=== PATIENT | female | born 1935 | race Caucasian/White ===

== ENCOUNTER 2019-08-20 08:36 | Inpatient (IN) ==
[2019-08-20] MEDS ORDERED: 0.9 % Sodium Chloride 500 ML IV ONE (08:53)
[2019-08-20] MEDS ORDERED: Pantoprazole 40 MG VIAL IVP ONE (09:00)
[2019-08-20] MEDS ORDERED: Ondansetron 4 MG/2 ML VIAL IVP ONE (09:01)
[2019-08-20 09:19] LABS: Basophils % 0.5 %; Eosinophils # 0.1 K/mcL (0.0-0.6); Hematocrit 23.2 % (35.3-44.9); Hemoglobin 7.4 g/dL (11.5-15.4); Immature Granulocytes % 0.5 % (0-4); Lymphocytes # 1.1 K/mcL (0.6-4.6); Lymphocytes % 13.8 %; Mean Corpuscular HGB Conc 31.9 g/dL (31.6-35.5); Mean Corpuscular Hemoglobin 28.2 pg (28.0-33.3); Mean Corpuscular Volume 88.5 fL (83.0-100.0); Mean Platelet Volume 9.9 fL (9.4-12.4); Monocytes # 0.8 K/mcL (0.0-1.3); Monocytes % 10.3 %; Platelet Count 270 K/mcL (140-400); Red Blood Count 2.62 M/mcL (3.82-4.97); Red Cell Distribution Width 16.3 % (11.5-14.5); Segmented Neutrophils % 73.9 %; White Blood Count 8.2 K/mcL (4.3-11.1)
[2019-08-20 09:20] LABS: INR 1.6; Prothrombin Time 17.7 Seconds (9.4-12.1)
[2019-08-20 09:22] LABS: Activated Partial Thrombo Time 34.3 Seconds (26.0-36.0)
[2019-08-20 09:35] LABS: Alanine Aminotransferase 8 Units/L (7-52); Albumin 3.6 g/dL (3.5-5.7); Albumin/Globulin Ratio 1.2 (1.1-2.2); Alkaline Phosphatase 83 Units/L (34-104); Aspartate Amino Transferase 10 Units/L (13-39); BUN/Creatinine Ratio 21 (6-26); Bilirubin,Total 0.5 mg/dL (0.3-1.0); Blood Urea Nitrogen 45 mg/dL (8-23); Calcium 8.8 mg/dL (8.6-10.3); Carbon Dioxide 27 mEq/L (23-29); Chloride 100 mEq/L (98-107); Glucose 145 mg/dL (70-105); Lipase 25 Units/L (11-82); Osmolality,Calculated 296 (280-300); Potassium 4.3 mEq/L (3.5-5.1); Sodium 136 mEq/L (136-145); Total Protein 6.6 g/dL (6.4-8.9); Troponin I < 0.03 ng/mL (< 0.04); eGFR For African Americans 27 (> 60); eGFR For Non-African Americans 22 (> 60)
[2019-08-20 10:57] LABS: Bilirubin,Urine Negative (Negative); Blood,Urine Large (Negative); Clarity,Urine Cloudy (Clear); Color,Urine Yellow (Yellow); Glucose,Urine (UA) Normal (Normal); Ketones,Urine Negative (Negative); Leukocyte Esterase,Urine Large (Negative); Nitrite,Urine Positive (Negative); PH,Urine 6.5 pH Units (5.0-8.0); Protein,Urine Negative (Neg-Trace); Specific Gravity,Urine 1.011 (1.010-1.025); Urobilinogen,Urine Normal (Normal)
[2019-08-20 10:59] LABS: Bacteria,Urine Many per hpf (None-Few); Hyaline Casts,Urine None Seen per lpf (None-Few); Squamous Epithelial Cell,Urine Few per lpf (None-Few); WBC,Urine TNTC per hpf (0-3)
[2019-08-20] MEDS ORDERED: 0.9 % Sodium Chloride 250 ML ONE (11:06)
[2019-08-20] MEDS ORDERED: Naloxone 0.4 MG/ML INJ IVP PRN (13:59)
[2019-08-20] MEDS ORDERED: *HR* Dextrose 50 % in Water (Syg) 50 ML SYRINGE IVP PRN (14:13)
[2019-08-20] MEDS ORDERED: Dextrose Gel 15 GM/37.5 ML TUBE PO PRN ×2 (14:13)
[2019-08-20] MEDS ORDERED: D5% in Water 1,000 ML IVC PRN (14:13)
[2019-08-20 15:24] LABS: Estimated Average Glucose 235 mg/dl
[2019-08-20] MEDS: 0.9 % Sodium Chloride 1,000 ML IVC SCH (15:46)
[2019-08-20] MEDS: Insulin LISPRO 300 UNITS/3 ML VIAL SQ SCH ×2 (16:15→21:50)
[2019-08-20] MEDS: Pantoprazole 40 MG VIAL IVP SCH (18:28)
[2019-08-20 18:51] LABS: Hematocrit 23.4 % (35.3-44.9); Hemoglobin 7.3 g/dL (11.5-15.4)
[2019-08-20 22:12] LABS: Hematocrit 20.1 % (35.3-44.9); Hemoglobin 6.5 g/dL (11.5-15.4)
[2019-08-21 00:21] LABS: Basophils # 0.1 K/mcL (0.0-0.2); Basophils % 0.6 %; Eosinophils # 0.1 K/mcL (0.0-0.6); Eosinophils % 1.3 %; Hematocrit 20.6 % (35.3-44.9); Hemoglobin 6.6 g/dL (11.5-15.4); Immature Granulocytes % 0.6 % (0-4); Lymphocytes # 1.7 K/mcL (0.6-4.6); Lymphocytes % 18.4 %; Mean Corpuscular Hemoglobin 28.4 pg (28.0-33.3); Mean Corpuscular Volume 88.8 fL (83.0-100.0); Mean Platelet Volume 9.4 fL (9.4-12.4); Monocytes # 1.1 K/mcL (0.0-1.3); Monocytes % 11.7 %; Platelet Count 234 K/mcL (140-400); Red Blood Count 2.32 M/mcL (3.82-4.97); Red Cell Distribution Width 16.3 % (11.5-14.5); Segmented Neutrophils % 67.4 %
[2019-08-21] MEDS ORDERED: 0.9 % Sodium Chloride 250 ML ONE (00:29)
[2019-08-21 00:40] LABS: Calcium 8.2 mg/dL (8.6-10.3); Potassium 4.3 mEq/L (3.5-5.1)
[2019-08-21] MEDS: 0.9 % Sodium Chloride 1,000 ML IVC SCH (05:12)
[2019-08-21] MEDS: Pantoprazole 40 MG VIAL IVP SCH ×2 (05:13→17:23)
[2019-08-21 05:33] LABS: Hematocrit 21.8 % (35.3-44.9)
[2019-08-21] MEDS: Insulin LISPRO 300 UNITS/3 ML VIAL SQ SCH ×3 (07:49→16:43)
[2019-08-21] MEDS ORDERED: Ringers Solution, Lactated 1,000 ML IVC SCH (08:15)
[2019-08-21] MEDS ORDERED: Lidocaine -MPF 2% 2 ML VIAL ONE (08:28)
[2019-08-21] MEDS ORDERED: *HR* PHENYLEPHRINE 1,000 MCG/10 ML SYRINGE IVP ONE (08:28)
[2019-08-21] MEDS: cefTRIAXone 1,000 MG in Water for inj. (sterile) 10 ML IVP SCH (10:36)
[2019-08-21] MEDS ORDERED: 0.9 % Sodium Chloride 250 ML IVC SCH (18:30)
[2019-08-21 20:12] LABS: Hematocrit 18.9 % (35.3-44.9)
[2019-08-22 02:59] LABS: Basophils % 0.4 %; Eosinophils # 0.1 K/mcL (0.0-0.6); Eosinophils % 1.1 %; Hematocrit 19.5 % (35.3-44.9); Hemoglobin 6.2 g/dL (11.5-15.4); Immature Granulocytes % 0.8 % (0-4); Lymphocytes # 0.7 K/mcL (0.6-4.6); Lymphocytes % 6.8 %; Mean Corpuscular HGB Conc 31.8 g/dL (31.6-35.5); Mean Corpuscular Hemoglobin 28.3 pg (28.0-33.3); Mean Platelet Volume 10.1 fL (9.4-12.4); Monocytes # 1.2 K/mcL (0.0-1.3); Monocytes % 12.2 %; Neutrophils # 7.7 K/mcL (1.6-8.9); Platelet Count 186 K/mcL (140-400); Red Blood Count 2.19 M/mcL (3.82-4.97); Red Cell Distribution Width 16.7 % (11.5-14.5); Segmented Neutrophils % 78.7 %; White Blood Count 9.8 K/mcL (4.3-11.1)
[2019-08-22 03:20] LABS: Calcium 7.9 mg/dL (8.6-10.3); Potassium 4.2 mEq/L (3.5-5.1)
[2019-08-22] MEDS: Insulin LISPRO 300 UNITS/3 ML VIAL SQ SCH ×5 (04:58→22:26)
[2019-08-22] MEDS: Pantoprazole 40 MG VIAL IVP SCH ×2 (05:54→18:45)
[2019-08-22] MEDS: cefTRIAXone 1,000 MG in Water for inj. (sterile) 10 ML IVP SCH (08:51)
[2019-08-22] MEDS ORDERED: Isovue-370 500 ML BOTTLE IVP ONE (10:18)
[2019-08-22] MEDS ORDERED: 0.9 % Sodium Chloride 250 ML ONE (13:33)
[2019-08-22] MEDS ORDERED: *HR* Metoprolol 5 MG/5 ML VIAL IVP PRN (14:30)
[2019-08-22 18:27] LABS: Hematocrit 23.3 % (35.3-44.9); Hemoglobin 7.6 g/dL (11.5-15.4)
[2019-08-22] MEDS: 0.9 % Sodium Chloride 1,000 ML IVC SCH (18:45)
[2019-08-22] MEDS: Budesonide/Formoterol 80/4.5 1 PUFF INH IH SCH (19:50)
[2019-08-23 03:46] LABS: Basophils % 0.4 %; Eosinophils # 0.1 K/mcL (0.0-0.6); Eosinophils % 1.6 %; Hematocrit 24.1 % (35.3-44.9); Hemoglobin 7.9 g/dL (11.5-15.4); Immature Granulocytes % 0.9 % (0-4); Lymphocytes # 0.5 K/mcL (0.6-4.6); Lymphocytes % 7.6 %; Mean Corpuscular HGB Conc 32.8 g/dL (31.6-35.5); Mean Corpuscular Hemoglobin 29.2 pg (28.0-33.3); Mean Corpuscular Volume 88.9 fL (83.0-100.0); Mean Platelet Volume 9.5 fL (9.4-12.4); Monocytes # 0.7 K/mcL (0.0-1.3); Monocytes % 10.1 %; Neutrophils # 5.4 K/mcL (1.6-8.9); Platelet Count 159 K/mcL (140-400); Red Blood Count 2.71 M/mcL (3.82-4.97); Red Cell Distribution Width 16.8 % (11.5-14.5); Segmented Neutrophils % 79.4 %; White Blood Count 6.8 K/mcL (4.3-11.1)
[2019-08-23 04:04] LABS: Calcium 8.4 mg/dL (8.6-10.3); Potassium 3.6 mEq/L (3.5-5.1)
[2019-08-23 04:05] LABS: Uric Acid 10.4 mg/dL (2.3-7.6)
[2019-08-23 04:06] LABS: Complement C3 74 mg/dL (87-200)
[2019-08-23] MEDS: Pantoprazole 40 MG VIAL IVP SCH ×2 (06:39→18:08)
[2019-08-23] MEDS: Budesonide/Formoterol 80/4.5 1 PUFF INH IH SCH ×2 (07:39→21:46)
[2019-08-23] MEDS ORDERED: 0.9 % Sodium Chloride 250 ML IVC SCH (09:15)
[2019-08-23] MEDS: 0.9 % Sodium Chloride 1,000 ML IVC SCH (09:34)
[2019-08-23] MEDS: cefTRIAXone 1,000 MG in Water for inj. (sterile) 10 ML IVP SCH (09:35)
[2019-08-23] MEDS: Insulin LISPRO 300 UNITS/3 ML VIAL SQ SCH ×3 (09:35→18:06)
[2019-08-23] MEDS: Ondansetron 4 MG/2 ML VIAL IVP PRN (09:59)
[2019-08-23] MEDS ORDERED: 0.9 % Sodium Chloride 1,000 ML IVC SCH (11:05)
[2019-08-23] MEDS ORDERED: Ondansetron 4 MG/2 ML VIAL IVP ONE (18:01)
[2019-08-23] MEDS ORDERED: *HR* FentaNYL (PF) 100 MCG/2 ML VIAL IVP PRN (18:01)
[2019-08-23] MEDS ORDERED: Lidocaine HCL 4 ML Topical Solution (Laryng-O-Jet Kit Sterile Pak) TP ONE (21:53)
[2019-08-23] MEDS ORDERED: *HR* Propofol 200 MG/20 ML VIAL IVP ONE (21:53)
[2019-08-23] MEDS ORDERED: *HR* Rocuronium Bromide 50 MG/5 ML VIAL ONE (21:53)
[2019-08-23] MEDS ORDERED: *HR* FentaNYL (PF) 100 MCG/2 ML VIAL ONE (21:53)
[2019-08-23] MEDS ORDERED: Lidocaine -MPF 2% 2 ML VIAL ONE (21:53)
[2019-08-23] MEDS ORDERED: *HR* PHENYLEPHRINE 1,000 MCG/10 ML SYRINGE IVP ONE (23:38)
[2019-08-23] MEDS ORDERED: Ondansetron 4 MG/2 ML VIAL ONE (23:40)
[2019-08-23] MEDS ORDERED: Dexamethasone 4 MG/ML VIAL ONE (23:40)
[2019-08-24] MEDS ORDERED: *HR* Etomidate 40 MG/20 ML VIAL IVP ONE (00:21)
[2019-08-24] MEDS: Insulin LISPRO 300 UNITS/3 ML VIAL SQ SCH ×5 (00:48→22:19)
[2019-08-24] MEDS ORDERED: *HR* FentaNYL (PF) 100 MCG/2 ML VIAL ONE (02:01)
[2019-08-24] MEDS ORDERED: *HR* Metoprolol 5 MG/5 ML VIAL IVP ONE (02:50)
[2019-08-24] MEDS: Ondansetron 4 MG/2 ML VIAL IVP PRN ×2 (05:35→07:51)
[2019-08-24 06:16] LABS: Hematocrit 29.6 % (35.3-44.9); Hemoglobin 9.4 g/dL (11.5-15.4)
[2019-08-24 06:17] LABS: Basophils % 0.3 %; Eosinophils # 0.1 K/mcL (0.0-0.6); Eosinophils % 0.6 %; Hematocrit 29.8 % (35.3-44.9); Hemoglobin 9.7 g/dL (11.5-15.4); Immature Granulocytes % 0.7 % (0-4); Lymphocytes # 0.5 K/mcL (0.6-4.6); Lymphocytes % 4.2 %; Mean Corpuscular HGB Conc 32.6 g/dL (31.6-35.5); Mean Corpuscular Hemoglobin 29.5 pg (28.0-33.3); Mean Corpuscular Volume 90.6 fL (83.0-100.0); Mean Platelet Volume 10.1 fL (9.4-12.4); Monocytes % 8.7 %; Nucleated Red Blood Cells 0.3 /100 WBC (0); Platelet Count 165 K/mcL (140-400); Red Blood Count 3.29 M/mcL (3.82-4.97); Red Cell Distribution Width 16.4 % (11.5-14.5); Segmented Neutrophils % 85.5 %
[2019-08-24 06:18] LABS: Neutrophils # 9.7 K/mcL (1.6-8.9); White Blood Count 11.3 K/mcL (4.3-11.1)
[2019-08-24] MEDS ORDERED: *HR* Metoprolol 5 MG/5 ML VIAL IVP PRN (06:25)
[2019-08-24] MEDS ORDERED: Dextrose Gel 15 GM/37.5 ML TUBE PO PRN ×2 (06:25)
[2019-08-24] MEDS ORDERED: D5% in Water 1,000 ML IVC PRN (06:25)
[2019-08-24] MEDS ORDERED: Naloxone 0.4 MG/ML INJ IVP PRN (06:25)
[2019-08-24] MEDS ORDERED: *HR* Dextrose 50 % in Water (Syg) 50 ML SYRINGE IVP PRN (06:25)
[2019-08-24] MEDS ORDERED: Morphine PCA 30 MG/ 30 ML 30 ML PCA.VIAL IVC PRN (06:25)
[2019-08-24] MEDS ORDERED: D5% in 0.45% NACL w KCl 20 MEQ/1,000 ML MLS IVC SCH (06:25)
[2019-08-24 06:35] LABS: Calcium 7.2 mg/dL (8.6-10.3); Potassium 4.3 mEq/L (3.5-5.1)
[2019-08-24] MEDS: Budesonide/Formoterol 80/4.5 1 PUFF INH IH SCH ×2 (07:40→19:51)
[2019-08-24] MEDS ORDERED: Morphine Sulfate 2 MG/ML SYRINGE IVP ONE (08:01)
[2019-08-24] MEDS ORDERED: cefTRIAXone 1,000 MG in Water for inj. (sterile) 10 ML IVP SCH (09:00)
[2019-08-24] MEDS: Acetaminophen IV 1,000 MG/100 ML INFUS..BTL IVPB SCH ×4 (09:49→23:20)
[2019-08-24 12:53] LABS: Basophils % 0.1 %; Hematocrit 26.3 % (35.3-44.9); Hemoglobin 8.6 g/dL (11.5-15.4); Immature Granulocytes % 0.6 % (0-4); Lymphocytes # 0.4 K/mcL (0.6-4.6); Lymphocytes % 2.1 %; Mean Corpuscular HGB Conc 32.7 g/dL (31.6-35.5); Mean Corpuscular Hemoglobin 28.6 pg (28.0-33.3); Mean Corpuscular Volume 87.4 fL (83.0-100.0); Mean Platelet Volume 10.1 fL (9.4-12.4); Monocytes # 1.1 K/mcL (0.0-1.3); Monocytes % 6.7 %; Neutrophils # 14.7 K/mcL (1.6-8.9); Platelet Count 139 K/mcL (140-400); Red Blood Count 3.01 M/mcL (3.82-4.97); Red Cell Distribution Width 16.7 % (11.5-14.5); Segmented Neutrophils % 90.5 %; White Blood Count 16.3 K/mcL (4.3-11.1)
[2019-08-24] MEDS: D5% in 0.45% NACL w KCl 20 MEQ/1,000 ML MLS IVC SCH (15:00)
[2019-08-24] MEDS: Pantoprazole 40 MG VIAL IVP SCH (17:38)
[2019-08-24] MEDS ORDERED: Ringers Solution, Lactated 500 ML IVC ONE (17:55)
[2019-08-24 20:53] LABS: Kappa Qnt Free Light Chains 58.77 mg/L (3.30-19.40); Lambda Qnt Free Light Chains 61.11 mg/L (5.71-26.30)
[2019-08-25] MEDS: D5% in 0.45% NACL w KCl 20 MEQ/1,000 ML MLS IVC SCH ×2 (04:09→17:22)
[2019-08-25] MEDS: Acetaminophen IV 1,000 MG/100 ML INFUS..BTL IVPB SCH ×3 (05:25→17:23)
[2019-08-25] MEDS: Pantoprazole 40 MG VIAL IVP SCH ×2 (05:26→17:18)
[2019-08-25 05:40] LABS: Hemoglobin 8.1 g/dL (11.5-15.4); Mean Corpuscular HGB Conc 32.4 g/dL (31.6-35.5); Mean Corpuscular Hemoglobin 28.9 pg (28.0-33.3); Mean Corpuscular Volume 89.3 fL (83.0-100.0); Mean Platelet Volume 9.9 fL (9.4-12.4); Platelet Count 152 K/mcL (140-400); Red Cell Distribution Width 17.3 % (11.5-14.5); White Blood Count 15.3 K/mcL (4.3-11.1)
[2019-08-25 06:02] LABS: Calcium 7.6 mg/dL (8.6-10.3); Potassium 4.1 mEq/L (3.5-5.1)
[2019-08-25] MEDS: Budesonide/Formoterol 80/4.5 1 PUFF INH IH SCH ×2 (07:37→19:43)
[2019-08-25] MEDS: Insulin LISPRO 300 UNITS/3 ML VIAL SQ SCH ×4 (08:38→20:47)
[2019-08-25] MEDS: PARoxetine 20 MG TABLET PO SCH (08:39)
[2019-08-25] MEDS: Insulin DETEMIR 100 UNIT/ML X5UNITS SQ SCH (20:47)
[2019-08-26 02:51] LABS: Hematocrit 24.9 % (35.3-44.9); Mean Corpuscular HGB Conc 32.1 g/dL (31.6-35.5); Mean Corpuscular Hemoglobin 29.5 pg (28.0-33.3); Mean Corpuscular Volume 91.9 fL (83.0-100.0); Mean Platelet Volume 10.3 fL (9.4-12.4); Platelet Count 158 K/mcL (140-400); Red Blood Count 2.71 M/mcL (3.82-4.97); Red Cell Distribution Width 18.2 % (11.5-14.5); White Blood Count 16.8 K/mcL (4.3-11.1)
[2019-08-26 03:10] LABS: Calcium 7.7 mg/dL (8.6-10.3); Phosphorous 5.8 mg/dL (2.7-4.5); Potassium 5.1 mEq/L (3.5-5.1)
[2019-08-26] MEDS: Pantoprazole 40 MG VIAL IVP SCH (05:44)
[2019-08-26] MEDS: Acetaminophen IV 1,000 MG/100 ML INFUS..BTL IVPB SCH (05:45)
[2019-08-26] MEDS: D5% in 0.45% NACL w KCl 20 MEQ/1,000 ML MLS IVC SCH (06:11)
[2019-08-26] MEDS: Budesonide/Formoterol 80/4.5 1 PUFF INH IH SCH ×2 (07:25→19:48)
[2019-08-26] MEDS: PARoxetine 20 MG TABLET PO SCH (07:47)
[2019-08-26] MEDS: Insulin LISPRO 300 UNITS/3 ML VIAL SQ SCH ×4 (07:48→21:39)
[2019-08-26] MEDS ORDERED: levoFLOXacin 750 MG TABLET PO ONE (09:00)
[2019-08-26 09:55] LABS: Serine Protease-3 Antibody 6 AU/mL (0-19)
[2019-08-26] MEDS ORDERED: 0.9 % Sodium Chloride 250 ML ONE (12:44)
[2019-08-26] MEDS: MetroNIDAZOLE 500 MG/100 ML 500 MG/100 ML BAG IVPB SCH ×2 (12:50→17:18)
[2019-08-26] MEDS ORDERED: polyethylene glycoL 3350 17 GM POWD.PACK PO PRN (13:51)
[2019-08-26] MEDS ORDERED: 0.9 % Sodium Chloride 1,000 ML IVC SCH (18:00)
[2019-08-26 19:34] LABS: Alpha 2 Globulin (PEP) 0.52 g/dL (0.48-1.05); Beta Globulin (PEP) 0.76 g/dL (0.48-1.10)
[2019-08-26] MEDS: Ondansetron 4 MG/2 ML VIAL IVP PRN (21:20)
[2019-08-26] MEDS: Insulin DETEMIR 100 UNIT/ML X5UNITS SQ SCH (21:21)
[2019-08-27] MEDS: MetroNIDAZOLE 500 MG/100 ML 500 MG/100 ML BAG IVPB SCH ×4 (00:49→17:52)
[2019-08-27 02:55] LABS: Hemoglobin 7.4 g/dL (11.5-15.4); Mean Corpuscular HGB Conc 32.2 g/dL (31.6-35.5); Mean Corpuscular Hemoglobin 29.7 pg (28.0-33.3); Mean Corpuscular Volume 92.4 fL (83.0-100.0); Platelet Count 149 K/mcL (140-400); Red Blood Count 2.49 M/mcL (3.82-4.97); Red Cell Distribution Width 18.2 % (11.5-14.5); White Blood Count 12.2 K/mcL (4.3-11.1)
[2019-08-27 03:11] LABS: Calcium 7.8 mg/dL (8.6-10.3); Potassium 4.9 mEq/L (3.5-5.1)
[2019-08-27] MEDS: Budesonide/Formoterol 80/4.5 1 PUFF INH IH SCH ×2 (07:31→21:22)
[2019-08-27] MEDS: Insulin LISPRO 300 UNITS/3 ML VIAL SQ SCH ×4 (08:07→22:44)
[2019-08-27] MEDS: PARoxetine 20 MG TABLET PO SCH (08:47)
[2019-08-27 09:24] LABS: ANA IgG by ELISA NONE DETECTED (None Detected)
[2019-08-27] MEDS ORDERED: 0.9 % Sodium Chloride 1,000 ML IV ONE (10:17)
[2019-08-27 12:18] LABS: IFE Reflexed IFE Done; Immunoglobulin A 451 mg/dL (68-408); Immunoglobulin G 919 mg/dL (768-1632); Immunoglobulin M 28 mg/dL (35-263)
[2019-08-27 23:08] LABS: Bilirubin,Urine Negative (Negative); Blood,Urine Small (Negative); Clarity,Urine Clear (Clear); Color,Urine Yellow (Yellow); Glucose,Urine (UA) Normal (Normal); Ketones,Urine Trace mg/dL (Negative); Leukocyte Esterase,Urine Large (Negative); Nitrite,Urine Negative (Negative); PH,Urine 5.5 pH Units (5.0-8.0); Protein,Urine 30 mg/dL (Neg-Trace); Specific Gravity,Urine 1.019 (1.010-1.025); Squamous Epithelial Cell,Urine Few per hpf (None-Few); Urobilinogen,Urine Normal (Normal); WBC,Urine 50-100 per hpf (0-3)
[2019-08-28] MEDS: MetroNIDAZOLE 500 MG/100 ML 500 MG/100 ML BAG IVPB SCH ×5 (00:23→23:49)
[2019-08-28 05:16] LABS: Hematocrit 23.6 % (35.3-44.9); Hemoglobin 7.3 g/dL (11.5-15.4); Mean Corpuscular HGB Conc 30.9 g/dL (31.6-35.5); Mean Corpuscular Hemoglobin 29.4 pg (28.0-33.3); Mean Corpuscular Volume 95.2 fL (83.0-100.0); Mean Platelet Volume 9.5 fL (9.4-12.4); Platelet Count 188 K/mcL (140-400); Red Blood Count 2.48 M/mcL (3.82-4.97); Red Cell Distribution Width 18.6 % (11.5-14.5); White Blood Count 9.5 K/mcL (4.3-11.1)
[2019-08-28 05:36] LABS: Calcium 8.3 mg/dL (8.6-10.3); Potassium 5.7 mEq/L (3.5-5.1)
[2019-08-28] MEDS ORDERED: SODIUM ZIRCONIUM CYCLOSILICATE 5 GM POWD.PACK PO ONE (07:16)
[2019-08-28] MEDS: PARoxetine 20 MG TABLET PO SCH (08:02)
[2019-08-28] MEDS: Insulin LISPRO 300 UNITS/3 ML VIAL SQ SCH ×4 (08:03→21:41)
[2019-08-28] MEDS ORDERED: levoFLOXacin 500 MG TABLET PO SCH (09:00)
[2019-08-28] MEDS: Budesonide/Formoterol 80/4.5 1 PUFF INH IH SCH ×2 (10:18→20:09)
[2019-08-28] MEDS: DilTIAZem CD (24hr) 180 MG CAP.ER.24H PO SCH (11:26)
[2019-08-29 01:18] LABS: Hematocrit 21.7 % (35.3-44.9); Hemoglobin 6.9 g/dL (11.5-15.4); Mean Corpuscular HGB Conc 31.8 g/dL (31.6-35.5); Mean Corpuscular Hemoglobin 29.6 pg (28.0-33.3); Mean Corpuscular Volume 93.1 fL (83.0-100.0); Mean Platelet Volume 9.2 fL (9.4-12.4); Platelet Count 168 K/mcL (140-400); Red Blood Count 2.33 M/mcL (3.82-4.97); Red Cell Distribution Width 18.4 % (11.5-14.5)
[2019-08-29 01:40] LABS: Calcium 7.7 mg/dL (8.6-10.3); Potassium 4.1 mEq/L (3.5-5.1)
[2019-08-29] MEDS: MetroNIDAZOLE 500 MG/100 ML 500 MG/100 ML BAG IVPB SCH (06:05)
[2019-08-29] MEDS: Budesonide/Formoterol 80/4.5 1 PUFF INH IH SCH (07:48)
[2019-08-29] MEDS: PARoxetine 20 MG TABLET PO SCH (08:40)
[2019-08-29] MEDS: Insulin LISPRO 300 UNITS/3 ML VIAL SQ SCH ×2 (08:40→11:08)
[2019-08-29] MEDS: DilTIAZem CD (24hr) 180 MG CAP.ER.24H PO SCH (08:41)
[2019-08-29] MEDS ORDERED: 0.9 % Sodium Chloride 250 ML ONE (10:00)
[2019-08-29] MEDS ORDERED: DilTIAZem SR (12hr) 60 MG CAP.ER.12H PO ONE (10:01)
[2019-08-29 12:10] LABS: Hemoglobin 7.9 g/dL (11.5-15.4); Mean Corpuscular HGB Conc 31.6 g/dL (31.6-35.5); Mean Corpuscular Hemoglobin 29.5 pg (28.0-33.3); Mean Corpuscular Volume 93.3 fL (83.0-100.0); Mean Platelet Volume 9.2 fL (9.4-12.4); Platelet Count 186 K/mcL (140-400); Red Blood Count 2.68 M/mcL (3.82-4.97); White Blood Count 6.5 K/mcL (4.3-11.1)
[2019-08-29 13:34] VITALS: BP 107/56
[2019-08-29 14:44] LABS: Hematocrit 27.2 % (35.3-44.9); Hemoglobin 8.5 g/dL (11.5-15.4)
== END 2019-08-29 16:52 | disposition home health service (06) | DRG 329 ==
LOC: EMEROOARM 08:36 → 3ANU 08:36 → SUATTDRO 08-21 15:30
PROVIDERS: ADMIT Internal Medicine; ATTEND Internal Medicine

== ENCOUNTER 2019-12-20 18:19 | Inpatient (IN) ==
[2019-12-20] MEDS ORDERED: Isovue-370 500 ML BOTTLE IVP ONE (19:14)
[2019-12-20 20:11] LABS: Basophils % 0.4 %; Eosinophils # 0.2 K/mcL (0.0-0.6); Eosinophils % 2.2 %; Hematocrit 34.2 % (35.3-44.9); Hemoglobin 10.2 g/dL (11.5-15.4); Immature Granulocytes % 0.3 % (0-4); Lymphocytes # 0.7 K/mcL (0.6-4.6); Lymphocytes % 10.4 %; Mean Corpuscular HGB Conc 29.8 g/dL (31.6-35.5); Mean Corpuscular Hemoglobin 26.6 pg (28.0-33.3); Mean Corpuscular Volume 89.1 fL (83.0-100.0); Mean Platelet Volume 9.7 fL (9.4-12.4); Monocytes # 0.7 K/mcL (0.0-1.3); Monocytes % 10.5 %; Neutrophils # 5.1 K/mcL (1.6-8.9); Platelet Count 243 K/mcL (140-400); Red Blood Count 3.84 M/mcL (3.82-4.97); Red Cell Distribution Width 15.3 % (11.5-14.5); Segmented Neutrophils % 76.2 %; White Blood Count 6.7 K/mcL (4.3-11.1)
[2019-12-20 20:30] LABS: Calcium 9.4 mg/dL (8.6-10.3); Potassium 3.6 mEq/L (3.5-5.1); Troponin I 0.07 ng/mL (< 0.04)
[2019-12-20] MEDS ORDERED: Bumetanide 1 MG/4 ML VIAL IVP ONE (21:35)
[2019-12-20 22:32] LABS: Bacteria,Urine Moderate per hpf (None-Few); Bilirubin,Urine Negative (Negative); Blood,Urine Small (Negative); Clarity,Urine Clear (Clear); Color,Urine Light-Yellow (Yellow); Glucose,Urine (UA) Normal (Normal); Hyaline Casts,Urine Few per lpf (None Seen); Ketones,Urine Negative (Negative); Leukocyte Esterase,Urine Moderate (Negative); Mucus,Urine Few per lpf (None-Few); Nitrite,Urine Positive (Negative); PH,Urine 5.5 pH Units (5.0-8.0); Protein,Urine Trace mg/dL (Neg-Trace); Specific Gravity,Urine 1.015 (1.010-1.025); Squamous Epithelial Cell,Urine Few per hpf (None-Few); Urobilinogen,Urine Normal (Normal)
[2019-12-20] MEDS ORDERED: Naloxone 0.4 MG/ML INJ IVP PRN (23:03)
[2019-12-21 02:50] LABS: Hematocrit 32.5 % (35.3-44.9); Hemoglobin 9.8 g/dL (11.5-15.4); Mean Corpuscular HGB Conc 30.2 g/dL (31.6-35.5); Mean Corpuscular Hemoglobin 27.1 pg (28.0-33.3); Mean Platelet Volume 9.8 fL (9.4-12.4); Platelet Count 240 K/mcL (140-400); Red Blood Count 3.61 M/mcL (3.82-4.97); Red Cell Distribution Width 15.3 % (11.5-14.5); White Blood Count 6.9 K/mcL (4.3-11.1)
[2019-12-21 03:12] LABS: Albumin 3.1 g/dL (3.5-5.7); Albumin/Globulin Ratio 0.8 (1.1-2.2); Bilirubin,Total 0.5 mg/dL (0.3-1.0); Globulin 3.7 g/dL (2.4-3.5); Potassium 3.4 mEq/L (3.5-5.1); Total Protein 6.8 g/dL (6.4-8.9)
[2019-12-21 03:16] LABS: Troponin I 0.06 ng/mL (< 0.04)
[2019-12-21] MEDS ORDERED: Naloxone 0.4 MG/ML INJ IVP PRN (07:21)
[2019-12-21] MEDS ORDERED: Albumin 25% 25gram/100mL 25 GM/100 ML IV.SOLN IVPB ONE (07:22)
[2019-12-21] MEDS ORDERED: Dextrose Gel 15 GM/37.5 ML TUBE PO PRN ×2 (07:25)
[2019-12-21] MEDS ORDERED: *HR* Dextrose 50 % in Water (Vial) 50 ML VIAL IVP PRN (07:25)
[2019-12-21] MEDS ORDERED: D5% in Water 1,000 ML IVC PRN (07:25)
[2019-12-21] MEDS: Insulin LISPRO 300 UNITS/3 ML VIAL SQ SCH ×7 (07:30→21:30)
[2019-12-21] MEDS: cefTRIAXone 1,000 MG in Water for inj. (sterile) 10 ML IVP SCH ×2 (08:58)
[2019-12-21] MEDS: DilTIAZem CD (24hr) 240 MG CAP.ER.24H PO SCH (08:58)
[2019-12-21] MEDS: Cholecalciferol (D-3) 1,000 UNIT (25MCG) TABLET PO SCH (08:58)
[2019-12-21] MEDS: PARoxetine 20 MG TABLET PO SCH (08:58)
[2019-12-21] MEDS: (Cyanocobalamin (Vitamin B-12) [Vitamin B-12] 100 MCG PO SCH (08:59)
[2019-12-21] MEDS: Budesonide/Formoterol 80/4.5 1 PUFF INH IH SCH ×2 (09:06→22:06)
[2019-12-21] MEDS: Furosemide 40 MG/4 ML VIAL IVP SCH ×2 (10:30→21:30)
[2019-12-21] MEDS: Aspirin 81 MG TAB.CHEW PO SCH (11:06)
[2019-12-21 16:15] LABS: Adenovirus Not Detected (Not Detect); Coronavirus 229E Not Detected (Not Detect); Coronavirus HKU1 Not Detected (Not Detect); Coronavirus NL63 Not Detected (Not Detect); Coronavirus OC43 Not Detected (Not Detect); Human Metapneumovirus Not Detected (Not Detect); Human Rhinovirus/Enterovirus Not Detected (Not Detect); SARS-CoV-2 Not Detected (Not Detect)
[2019-12-21 16:16] LABS: Bordetella Pertussis Not Detected (Not Detect); Chlamydophila pneumoniae Not Detected (Not Detect); Influenza A Subtype 2009 H1 Not Detected (Not Detect); Influenza B Not Detected (Not Detect); Mycoplasma pneumoniae Not Detected (Not Detect); Parainfluenza Virus 1 Not Detected (Not Detect); Parainfluenza Virus 2 Not Detected (Not Detect); Parainfluenza Virus 3 Not Detected (Not Detect); Parainfluenza Virus 4 Not Detected (Not Detect); Respiratory Syncytial Virus Not Detected (Not Detect)
[2019-12-21 16:51] LABS: Uric Acid 10.9 mg/dL (2.3-7.6)
[2019-12-21] MEDS: Albumin 25% 25gram/100mL 25 GM/100 ML IV.SOLN IVPB SCH (18:49)
[2019-12-21] MEDS: *HR* Heparin 5,000 UNIT/ML VIAL SQ SCH (18:49)
[2019-12-22] MEDS: Albumin 25% 25gram/100mL 25 GM/100 ML IV.SOLN IVPB SCH ×2 (06:14→17:58)
[2019-12-22] MEDS: *HR* Heparin 5,000 UNIT/ML VIAL SQ SCH ×2 (06:15→17:59)
[2019-12-22] MEDS: Budesonide/Formoterol 80/4.5 1 PUFF INH IH SCH ×2 (08:12→20:54)
[2019-12-22] MEDS: Furosemide 40 MG/4 ML VIAL IVP SCH ×2 (10:12→20:40)
[2019-12-22] MEDS: Insulin LISPRO 300 UNITS/3 ML VIAL SQ SCH ×7 (10:12→20:03)
[2019-12-22] MEDS: cefTRIAXone 1,000 MG in Water for inj. (sterile) 10 ML IVP SCH (10:13)
[2019-12-22] MEDS: Aspirin 81 MG TAB.CHEW PO SCH (10:13)
[2019-12-22] MEDS: Cholecalciferol (D-3) 1,000 UNIT (25MCG) TABLET PO SCH (10:13)
[2019-12-22] MEDS: DilTIAZem CD (24hr) 240 MG CAP.ER.24H PO SCH (10:14)
[2019-12-22] MEDS: (Cyanocobalamin (Vitamin B-12) [Vitamin B-12] 100 MCG PO SCH (10:14)
[2019-12-22] MEDS: PARoxetine 20 MG TABLET PO SCH (10:14)
[2019-12-23 01:00] LABS: Basophils % 0.5 %; Eosinophils # 0.1 K/mcL (0.0-0.6); Eosinophils % 2.1 %; Hematocrit 29.9 % (35.3-44.9); Hemoglobin 8.9 g/dL (11.5-15.4); Immature Granulocytes % 0.5 % (0-4); Lymphocytes # 0.7 K/mcL (0.6-4.6); Mean Corpuscular HGB Conc 29.8 g/dL (31.6-35.5); Mean Corpuscular Hemoglobin 26.6 pg (28.0-33.3); Mean Corpuscular Volume 89.3 fL (83.0-100.0); Monocytes # 0.9 K/mcL (0.0-1.3); Neutrophils # 4.2 K/mcL (1.6-8.9); Platelet Count 214 K/mcL (140-400); Red Blood Count 3.35 M/mcL (3.82-4.97); Red Cell Distribution Width 15.5 % (11.5-14.5); Segmented Neutrophils % 69.9 %; White Blood Count 6.1 K/mcL (4.3-11.1)
[2019-12-23 01:08] LABS: Protein/Creatinine Ratio,Urine 0.38 mg/mg (0.00-0.20)
[2019-12-23 01:20] LABS: Calcium 8.9 mg/dL (8.6-10.3); Potassium 3.7 mEq/L (3.5-5.1)
[2019-12-23] MEDS: *HR* Heparin 5,000 UNIT/ML VIAL SQ SCH ×2 (05:48→18:27)
[2019-12-23] MEDS: Albumin 25% 25gram/100mL 25 GM/100 ML IV.SOLN IVPB SCH ×2 (05:48→18:27)
[2019-12-23] MEDS: Budesonide/Formoterol 80/4.5 1 PUFF INH IH SCH ×2 (08:00→21:35)
[2019-12-23] MEDS: PARoxetine 20 MG TABLET PO SCH (08:57)
[2019-12-23] MEDS: Cyanocobalamin (B-12) 1,000 MCG TABLET PO SCH (08:57)
[2019-12-23] MEDS: Aspirin 81 MG TAB.CHEW PO SCH (08:58)
[2019-12-23] MEDS: Cholecalciferol (D-3) 1,000 UNIT (25MCG) TABLET PO SCH (08:58)
[2019-12-23] MEDS: DilTIAZem CD (24hr) 240 MG CAP.ER.24H PO SCH (08:58)
[2019-12-23] MEDS: Furosemide 40 MG/4 ML VIAL IVP SCH ×2 (08:59→20:02)
[2019-12-23] MEDS: cephALEXin 500 MG CAPSULE PO SCH ×2 (09:01→20:02)
[2019-12-23] MEDS: Insulin LISPRO 300 UNITS/3 ML VIAL SQ SCH ×7 (09:01→19:55)
[2019-12-24] MEDS: *HR* Heparin 5,000 UNIT/ML VIAL SQ SCH ×2 (05:43→18:22)
[2019-12-24] MEDS: Budesonide/Formoterol 80/4.5 1 PUFF INH IH SCH ×2 (07:27→20:21)
[2019-12-24] MEDS: Insulin LISPRO 300 UNITS/3 ML VIAL SQ SCH ×7 (09:11→20:15)
[2019-12-24] MEDS: Furosemide 40 MG/4 ML VIAL IVP SCH ×2 (09:13→19:53)
[2019-12-24] MEDS: Cyanocobalamin (B-12) 1,000 MCG TABLET PO SCH (09:14)
[2019-12-24] MEDS: Aspirin 81 MG TAB.CHEW PO SCH (09:14)
[2019-12-24] MEDS: cephALEXin 500 MG CAPSULE PO SCH ×2 (09:15→19:52)
[2019-12-24] MEDS: PARoxetine 20 MG TABLET PO SCH (09:15)
[2019-12-24] MEDS: Cholecalciferol (D-3) 1,000 UNIT (25MCG) TABLET PO SCH (09:15)
[2019-12-24] MEDS: DilTIAZem CD (24hr) 240 MG CAP.ER.24H PO SCH (09:15)
[2019-12-24 09:17] LABS: Basophils % 0.3 %; Eosinophils # 0.1 K/mcL (0.0-0.6); Hematocrit 30.3 % (35.3-44.9); Immature Granulocytes % 0.5 % (0-4); Lymphocytes # 0.6 K/mcL (0.6-4.6); Lymphocytes % 7.1 %; Mean Corpuscular HGB Conc 29.7 g/dL (31.6-35.5); Mean Corpuscular Hemoglobin 27.2 pg (28.0-33.3); Mean Corpuscular Volume 91.5 fL (83.0-100.0); Mean Platelet Volume 9.9 fL (9.4-12.4); Monocytes % 12.4 %; Neutrophils # 6.2 K/mcL (1.6-8.9); Platelet Count 196 K/mcL (140-400); Red Blood Count 3.31 M/mcL (3.82-4.97); Red Cell Distribution Width 15.4 % (11.5-14.5); Segmented Neutrophils % 78.7 %; White Blood Count 7.9 K/mcL (4.3-11.1)
[2019-12-24 09:35] LABS: Complement C3 93 mg/dL (87-200)
[2019-12-24 09:36] LABS: Calcium 9.6 mg/dL (8.6-10.3); Potassium 3.9 mEq/L (3.5-5.1)
[2019-12-24 09:37] LABS: % Iron Saturation 8 % (15-50); Iron 25 mcg/dL (50-170); Transferrin 221 mg/dL (203-362)
[2019-12-24 09:55] LABS: Ferritin 35 ng/mL (10-120)
[2019-12-24 10:01] LABS: Folate 8.5 ng/mL (3.0-16.0)
[2019-12-24 10:04] LABS: Vitamin B12 > 1500 pg/mL (250-1100)
[2019-12-24] MEDS ORDERED: Ferumoxytol 510 MG in 0.9 % Sodium Chloride 100 ML IVPB ONE (13:20)
[2019-12-25] MEDS: *HR* Heparin 5,000 UNIT/ML VIAL SQ SCH ×2 (05:31→17:30)
[2019-12-25] MEDS: Budesonide/Formoterol 80/4.5 1 PUFF INH IH SCH ×2 (07:30→20:26)
[2019-12-25] MEDS: Insulin LISPRO 300 UNITS/3 ML VIAL SQ SCH ×7 (08:41→19:44)
[2019-12-25] MEDS: Furosemide 40 MG/4 ML VIAL IVP SCH ×2 (08:42→19:44)
[2019-12-25] MEDS: PARoxetine 20 MG TABLET PO SCH (08:43)
[2019-12-25] MEDS: Cyanocobalamin (B-12) 1,000 MCG TABLET PO SCH (08:43)
[2019-12-25] MEDS: DilTIAZem CD (24hr) 240 MG CAP.ER.24H PO SCH (08:43)
[2019-12-25] MEDS: cephALEXin 500 MG CAPSULE PO SCH ×2 (08:43→19:44)
[2019-12-25] MEDS: Cholecalciferol (D-3) 1,000 UNIT (25MCG) TABLET PO SCH (08:43)
[2019-12-25] MEDS: Aspirin 81 MG TAB.CHEW PO SCH (08:43)
[2019-12-25 18:44] LABS: Hematocrit 32.1 % (35.3-44.9); Hemoglobin 9.5 g/dL (11.5-15.4); Mean Corpuscular HGB Conc 29.6 g/dL (31.6-35.5); Mean Corpuscular Hemoglobin 26.5 pg (28.0-33.3); Mean Corpuscular Volume 89.7 fL (83.0-100.0); Mean Platelet Volume 10.3 fL (9.4-12.4); Platelet Count 225 K/mcL (140-400); Red Blood Count 3.58 M/mcL (3.82-4.97); Red Cell Distribution Width 15.6 % (11.5-14.5); White Blood Count 7.7 K/mcL (4.3-11.1)
[2019-12-25 19:06] LABS: Calcium 9.5 mg/dL (8.6-10.3); Potassium 3.9 mEq/L (3.5-5.1)
[2019-12-26] MEDS: *HR* Heparin 5,000 UNIT/ML VIAL SQ SCH ×2 (05:14→16:34)
[2019-12-26 06:29] LABS: Hematocrit 31.6 % (35.3-44.9); Hemoglobin 9.4 g/dL (11.5-15.4); Mean Corpuscular HGB Conc 29.7 g/dL (31.6-35.5); Mean Corpuscular Volume 90.8 fL (83.0-100.0); Mean Platelet Volume 10.3 fL (9.4-12.4); Platelet Count 246 K/mcL (140-400); Red Blood Count 3.48 M/mcL (3.82-4.97); Red Cell Distribution Width 15.7 % (11.5-14.5); White Blood Count 9.7 K/mcL (4.3-11.1)
[2019-12-26 06:49] LABS: Calcium 9.6 mg/dL (8.6-10.3); Potassium 3.9 mEq/L (3.5-5.1)
[2019-12-26] MEDS ORDERED: Furosemide 40 MG TABLET PO SCH (08:00)
[2019-12-26] MEDS: Aspirin 81 MG TAB.CHEW PO SCH (08:13)
[2019-12-26] MEDS: DilTIAZem CD (24hr) 240 MG CAP.ER.24H PO SCH (08:13)
[2019-12-26] MEDS: cephALEXin 500 MG CAPSULE PO SCH ×2 (08:14→23:10)
[2019-12-26] MEDS: PARoxetine 20 MG TABLET PO SCH (08:14)
[2019-12-26] MEDS: Cyanocobalamin (B-12) 1,000 MCG TABLET PO SCH (08:14)
[2019-12-26] MEDS: Cholecalciferol (D-3) 1,000 UNIT (25MCG) TABLET PO SCH (08:14)
[2019-12-26] MEDS: Insulin LISPRO 300 UNITS/3 ML VIAL SQ SCH ×7 (08:14→23:09)
[2019-12-26] MEDS: Budesonide/Formoterol 80/4.5 1 PUFF INH IH SCH ×2 (08:25→19:32)
[2019-12-26] MEDS ORDERED: Bumetanide 1 MG TABLET PO SCH (09:00)
[2019-12-26] MEDS: methylPREDNISolone 125 MG/2 ML VIAL IVP SCH ×2 (10:02→16:34)
[2019-12-26] MEDS: Ipratropium/Albuterol Neb 3 ML IH SCH ×3 (11:49→19:32)
[2019-12-26] MEDS: Albumin 25% 25gram/100mL 25 GM/100 ML IV.SOLN IVPB SCH (23:09)
[2019-12-26] MEDS: Furosemide 40 MG/4 ML VIAL IVP SCH (23:10)
[2019-12-27] MEDS: Ipratropium/Albuterol Neb 3 ML IH SCH ×7 (00:15→23:46)
[2019-12-27] MEDS: *HR* Heparin 5,000 UNIT/ML VIAL SQ SCH ×2 (05:14→18:01)
[2019-12-27] MEDS: methylPREDNISolone 125 MG/2 ML VIAL IVP SCH (05:14)
[2019-12-27 06:13] LABS: Hematocrit 29.8 % (35.3-44.9); Hemoglobin 8.7 g/dL (11.5-15.4); Mean Corpuscular HGB Conc 29.2 g/dL (31.6-35.5); Mean Corpuscular Hemoglobin 26.4 pg (28.0-33.3); Mean Corpuscular Volume 90.6 fL (83.0-100.0); Mean Platelet Volume 10.2 fL (9.4-12.4); Platelet Count 231 K/mcL (140-400); Red Blood Count 3.29 M/mcL (3.82-4.97); Red Cell Distribution Width 15.9 % (11.5-14.5); White Blood Count 7.2 K/mcL (4.3-11.1)
[2019-12-27 06:32] LABS: Calcium 9.8 mg/dL (8.6-10.3); Potassium 4.3 mEq/L (3.5-5.1)
[2019-12-27] MEDS: Budesonide/Formoterol 80/4.5 1 PUFF INH IH SCH ×2 (07:45→20:03)
[2019-12-27] MEDS: DilTIAZem CD (24hr) 240 MG CAP.ER.24H PO SCH (09:36)
[2019-12-27] MEDS: Cholecalciferol (D-3) 1,000 UNIT (25MCG) TABLET PO SCH (09:36)
[2019-12-27] MEDS: PARoxetine 20 MG TABLET PO SCH (09:36)
[2019-12-27] MEDS: cephALEXin 500 MG CAPSULE PO SCH (09:36)
[2019-12-27] MEDS: Cyanocobalamin (B-12) 1,000 MCG TABLET PO SCH (09:36)
[2019-12-27] MEDS: Aspirin 81 MG TAB.CHEW PO SCH (09:37)
[2019-12-27] MEDS: Albumin 25% 25gram/100mL 25 GM/100 ML IV.SOLN IVPB SCH ×2 (09:37→19:41)
[2019-12-27] MEDS: Insulin LISPRO 300 UNITS/3 ML VIAL SQ SCH ×7 (09:38→21:04)
[2019-12-27] MEDS: Furosemide 40 MG/4 ML VIAL IVP SCH ×2 (12:24→21:53)
[2019-12-27] MEDS: Insulin DETEMIR 100 UNIT/ML X5UNITS SQ SCH ×2 (12:25→21:03)
[2019-12-27] MEDS ORDERED: metOLazone 5 MG TABLET PO SCH (20:00)
[2019-12-28] MEDS: Ipratropium/Albuterol Neb 3 ML IH SCH ×5 (03:26→20:02)
[2019-12-28] MEDS: *HR* Heparin 5,000 UNIT/ML VIAL SQ SCH ×2 (05:29→18:26)
[2019-12-28] MEDS: Budesonide/Formoterol 80/4.5 1 PUFF INH IH SCH ×2 (07:14→20:03)
[2019-12-28 08:12] LABS: Hematocrit 29.5 % (35.3-44.9); Hemoglobin 8.8 g/dL (11.5-15.4); Mean Corpuscular HGB Conc 29.8 g/dL (31.6-35.5); Mean Corpuscular Hemoglobin 27.1 pg (28.0-33.3); Mean Corpuscular Volume 90.8 fL (83.0-100.0); Mean Platelet Volume 9.4 fL (9.4-12.4); Platelet Count 229 K/mcL (140-400); Red Blood Count 3.25 M/mcL (3.82-4.97); Red Cell Distribution Width 15.8 % (11.5-14.5)
[2019-12-28 08:17] LABS: White Blood Count 11.5 K/mcL (4.3-11.1)
[2019-12-28 08:33] LABS: Potassium 4.5 mEq/L (3.5-5.1)
[2019-12-28] MEDS: Insulin DETEMIR 100 UNIT/ML X5UNITS SQ SCH ×2 (09:06→20:55)
[2019-12-28] MEDS: Insulin LISPRO 300 UNITS/3 ML VIAL SQ SCH ×7 (09:06→20:53)
[2019-12-28] MEDS: Furosemide 40 MG/4 ML VIAL IVP SCH ×2 (09:07→10:42)
[2019-12-28] MEDS: PARoxetine 20 MG TABLET PO SCH (09:09)
[2019-12-28] MEDS: Cholecalciferol (D-3) 1,000 UNIT (25MCG) TABLET PO SCH (09:09)
[2019-12-28] MEDS: Aspirin 81 MG TAB.CHEW PO SCH (09:11)
[2019-12-28] MEDS: predniSONE 20 MG TABLET PO SCH (09:11)
[2019-12-28] MEDS: Cyanocobalamin (B-12) 1,000 MCG TABLET PO SCH (09:11)
[2019-12-28] MEDS: Albumin 25% 25gram/100mL 25 GM/100 ML IV.SOLN IVPB SCH ×2 (09:12→19:47)
[2019-12-28] MEDS: DilTIAZem CD (24hr) 240 MG CAP.ER.24H PO SCH (09:12)
[2019-12-29] MEDS: Ipratropium/Albuterol Neb 3 ML IH SCH ×2 (00:12→03:39)
[2019-12-29 04:53] LABS: Basophils % 0.1 %; Hemoglobin 8.6 g/dL (11.5-15.4); Immature Granulocytes % 0.9 % (0-4); Lymphocytes # 0.3 K/mcL (0.6-4.6); Lymphocytes % 2.3 %; Mean Corpuscular HGB Conc 30.7 g/dL (31.6-35.5); Mean Corpuscular Volume 91.2 fL (83.0-100.0); Mean Platelet Volume 10.1 fL (9.4-12.4); Monocytes # 1.1 K/mcL (0.0-1.3); Monocytes % 9.5 %; Neutrophils # 10.4 K/mcL (1.6-8.9); Nucleated Red Blood Cells 0.3 /100 WBC (0); Platelet Count 250 K/mcL (140-400); Red Blood Count 3.07 M/mcL (3.82-4.97); Red Cell Distribution Width 16.3 % (11.5-14.5); Segmented Neutrophils % 87.2 %; White Blood Count 11.9 K/mcL (4.3-11.1)
[2019-12-29 05:06] LABS: ABG Base Excess -1 mEq/L (-2 to 3); ABG HCO3 26 mEq/L (21-27); ABG Oxygen Saturation 93 % (95-98); ABG PCO2 48 mmHg (35-45); ABG PH 7.33 pH Units (7.32-7.45); ABG PO2 72 mmHg (85-104); ABG TCO2 27 mEq/L (20-26)
[2019-12-29 05:09] LABS: Albumin 4.3 g/dL (3.5-5.7); Albumin/Globulin Ratio 1.5 (1.1-2.2); Bilirubin,Total 0.6 mg/dL (0.3-1.0); Calcium 10.3 mg/dL (8.6-10.3); Globulin 2.9 g/dL (2.4-3.5); Potassium 4.3 mEq/L (3.5-5.1); Total Protein 7.2 g/dL (6.4-8.9)
[2019-12-29] MEDS: *HR* Heparin 5,000 UNIT/ML VIAL SQ SCH ×2 (07:32→18:02)
[2019-12-29] MEDS: Albumin 25% 25gram/100mL 25 GM/100 ML IV.SOLN IVPB SCH (08:01)
[2019-12-29] MEDS: Aspirin 81 MG TAB.CHEW PO SCH (08:05)
[2019-12-29] MEDS: PARoxetine 20 MG TABLET PO SCH (08:05)
[2019-12-29] MEDS: Cholecalciferol (D-3) 1,000 UNIT (25MCG) TABLET PO SCH (08:05)
[2019-12-29] MEDS: Cyanocobalamin (B-12) 1,000 MCG TABLET PO SCH (08:06)
[2019-12-29] MEDS: DilTIAZem CD (24hr) 240 MG CAP.ER.24H PO SCH (08:06)
[2019-12-29] MEDS: predniSONE 20 MG TABLET PO SCH (08:06)
[2019-12-29] MEDS: Insulin LISPRO 300 UNITS/3 ML VIAL SQ SCH ×7 (08:12→20:47)
[2019-12-29] MEDS: Insulin DETEMIR 100 UNIT/ML X5UNITS SQ SCH ×2 (08:12→20:55)
[2019-12-29] MEDS: Budesonide/Formoterol 80/4.5 1 PUFF INH IH SCH ×2 (08:18→19:51)
[2019-12-29] MEDS: Levalbuterol Neb 1.25 MG/3 ML IH SCH ×4 (08:18→19:40)
[2019-12-29] MEDS ORDERED: metOLazone 5 MG TABLET PO SCH (09:00)
[2019-12-29] MEDS ORDERED: Cefepime HCl 1,000 MG in Water for inj. (sterile) 10 ML IVP SCH (09:00)
[2019-12-29] MEDS ORDERED: Furosemide 40 MG/4 ML VIAL IVP SCH (09:00)
[2019-12-29] MEDS ORDERED: Furosemide 80 MG in 0.9 % Sodium Chloride 50 ML IVPB ONE (10:30)
[2019-12-29] MEDS: metOLazone 5 MG TABLET PO SCH (10:33)
[2019-12-29] MEDS ORDERED: Heparin 1,000 UNITS/500 mL 500 ML ONE (10:39)
[2019-12-29 10:49] LABS: Hepatitis B Surface Antibody < 3.10 mIU/mL
[2019-12-29 11:00] LABS: Hepatitis B Surface Antigen Nonreactive (Nonreactive)
[2019-12-29] MEDS ORDERED: Furosemide 480 MG in 0.9 % Sodium Chloride 192 ML IVC SCH (11:00)
[2019-12-29] MEDS ORDERED: *HR* Heparin 10,000 UNIT/10 ML VIAL IV PRN (11:20)
[2019-12-29] MEDS ORDERED: 0.9 % Sodium Chloride 250 ML IVC PRN (11:20)
[2019-12-29 11:29] LABS: Hepatitis B Core IgM Nonreactive (Nonreactive)
[2019-12-29] MEDS ORDERED: 0.9 % Sodium Chloride 1,000 ML PRIME SCH (11:30)
[2019-12-29] MEDS ORDERED: *HR* Heparin 5,000 UNIT/ML VIAL ONE (11:39)
[2019-12-29] MEDS: Doxycycline 100 MG in 0.9 % Sodium Chloride Mini Bag 100 ML IVPB SCH ×2 (12:22→20:53)
[2019-12-29] MEDS: Cefepime HCl 1,000 MG in Water for inj. (sterile) 10 ML IVP SCH (18:01)
[2019-12-30] MEDS: Levalbuterol Neb 1.25 MG/3 ML IH SCH ×6 (00:21→21:29)
[2019-12-30] MEDS: *HR* Heparin 5,000 UNIT/ML VIAL SQ SCH ×2 (05:46→17:53)
[2019-12-30 06:08] LABS: Mean Platelet Volume 9.9 fL (9.4-12.4)
[2019-12-30 06:09] LABS: Hematocrit 25.7 % (35.3-44.9); Hemoglobin 7.8 g/dL (11.5-15.4); Mean Corpuscular HGB Conc 30.4 g/dL (31.6-35.5); Mean Corpuscular Hemoglobin 28.5 pg (28.0-33.3); Mean Corpuscular Volume 93.8 fL (83.0-100.0); Platelet Count 180 K/mcL (140-400); Red Blood Count 2.74 M/mcL (3.82-4.97); Red Cell Distribution Width 17.2 % (11.5-14.5); White Blood Count 9.5 K/mcL (4.3-11.1)
[2019-12-30 06:32] LABS: Calcium 9.6 mg/dL (8.6-10.3); Potassium 4.5 mEq/L (3.5-5.1)
[2019-12-30 07:54] LABS: INR 1.5; Prothrombin Time 17.2 Seconds (9.4-12.1)
[2019-12-30] MEDS: Budesonide/Formoterol 80/4.5 1 PUFF INH IH SCH ×2 (07:54→21:29)
[2019-12-30] MEDS ORDERED: *HR* Heparin 10,000 UNIT/10 ML VIAL IV PRN (08:00)
[2019-12-30] MEDS ORDERED: 0.9 % Sodium Chloride 250 ML IVC PRN (08:00)
[2019-12-30] MEDS: Aspirin 81 MG TAB.CHEW PO SCH (08:29)
[2019-12-30] MEDS: Cyanocobalamin (B-12) 1,000 MCG TABLET PO SCH (08:29)
[2019-12-30] MEDS: predniSONE 20 MG TABLET PO SCH (08:29)
[2019-12-30] MEDS: PARoxetine 20 MG TABLET PO SCH (08:29)
[2019-12-30] MEDS: DilTIAZem CD (24hr) 240 MG CAP.ER.24H PO SCH (08:29)
[2019-12-30] MEDS: Cholecalciferol (D-3) 1,000 UNIT (25MCG) TABLET PO SCH (08:29)
[2019-12-30] MEDS: Insulin DETEMIR 100 UNIT/ML X5UNITS SQ SCH ×2 (08:30→21:09)
[2019-12-30] MEDS: Insulin LISPRO 300 UNITS/3 ML VIAL SQ SCH ×7 (08:31→21:09)
[2019-12-30] MEDS: metOLazone 5 MG TABLET PO SCH (10:51)
[2019-12-30 15:14] LABS: RBC,Pleural Fluid < 2000 RBC/mcL
[2019-12-30 15:20] LABS: Amylase,Pleural Fluid 19 Units/L (No Ref Range); Glucose,Pleural Fluid 188 mg/dL (No Ref Range); LDH,Pleural Fluid 41 Units/L (No Ref Range); Total Protein,Pleural Fluid < 2.0 g/dL
[2019-12-30 16:44] LABS: Appearance of Pleural Fl Clear (Clear)
[2019-12-30] MEDS: Cefepime HCl 1,000 MG in Water for inj. (sterile) 10 ML IVP SCH (17:52)
[2019-12-31] MEDS: Levalbuterol Neb 1.25 MG/3 ML IH SCH ×7 (00:28→23:50)
[2019-12-31] MEDS: *HR* Heparin 5,000 UNIT/ML VIAL SQ SCH ×2 (05:52→17:33)
[2019-12-31] MEDS ORDERED: 0.9 % Sodium Chloride 250 ML IVC PRN (07:06)
[2019-12-31] MEDS: predniSONE 20 MG TABLET PO SCH (07:46)
[2019-12-31] MEDS: Cholecalciferol (D-3) 1,000 UNIT (25MCG) TABLET PO SCH (07:46)
[2019-12-31] MEDS: Cyanocobalamin (B-12) 1,000 MCG TABLET PO SCH (07:46)
[2019-12-31] MEDS: Aspirin 81 MG TAB.CHEW PO SCH (07:46)
[2019-12-31] MEDS: PARoxetine 20 MG TABLET PO SCH (07:46)
[2019-12-31] MEDS: Budesonide/Formoterol 80/4.5 1 PUFF INH IH SCH ×2 (07:48→19:35)
[2019-12-31] MEDS: Insulin DETEMIR 100 UNIT/ML X5UNITS SQ SCH ×2 (09:44→21:05)
[2019-12-31] MEDS: Insulin LISPRO 300 UNITS/3 ML VIAL SQ SCH ×7 (09:45→21:04)
[2019-12-31 11:04] LABS: Eosinophils % 0.1 %; Hematocrit 25.1 % (35.3-44.9); Hemoglobin 7.7 g/dL (11.5-15.4); Immature Granulocytes % 0.8 % (0-4); Lymphocytes # 0.2 K/mcL (0.6-4.6); Lymphocytes % 1.6 %; Mean Corpuscular HGB Conc 30.7 g/dL (31.6-35.5); Mean Corpuscular Hemoglobin 28.8 pg (28.0-33.3); Monocytes # 0.9 K/mcL (0.0-1.3); Monocytes % 7.5 %; Neutrophils # 11.2 K/mcL (1.6-8.9); Nucleated Red Blood Cells 0.2 /100 WBC (0); Platelet Count 183 K/mcL (140-400); Red Blood Count 2.67 M/mcL (3.82-4.97); Red Cell Distribution Width 18.5 % (11.5-14.5); White Blood Count 12.5 K/mcL (4.3-11.1)
[2019-12-31 11:23] LABS: Albumin 3.8 g/dL (3.5-5.7); Calcium 9.3 mg/dL (8.6-10.3); Potassium 4.2 mEq/L (3.5-5.1)
[2019-12-31] MEDS ORDERED: *HR* Heparin 10,000 UNIT/10 ML VIAL IV PRN (14:44)
[2019-12-31] MEDS: DilTIAZem CD (24hr) 240 MG CAP.ER.24H PO SCH (17:26)
[2019-12-31] MEDS: Cefepime HCl 1,000 MG in Water for inj. (sterile) 10 ML IVP SCH (17:28)
[2020-01-01] MEDS: Levalbuterol Neb 1.25 MG/3 ML IH SCH ×6 (03:51→23:37)
[2020-01-01] MEDS: *HR* Heparin 5,000 UNIT/ML VIAL SQ SCH ×2 (05:24→18:13)
[2020-01-01] MEDS: Budesonide/Formoterol 80/4.5 1 PUFF INH IH SCH ×2 (07:40→20:14)
[2020-01-01 09:17] LABS: Hematocrit 23.6 % (35.3-44.9); Hemoglobin 7.2 g/dL (11.5-15.4); Mean Corpuscular HGB Conc 30.5 g/dL (31.6-35.5); Mean Corpuscular Hemoglobin 28.8 pg (28.0-33.3); Mean Corpuscular Volume 94.4 fL (83.0-100.0); Mean Platelet Volume 10.2 fL (9.4-12.4); Platelet Count 174 K/mcL (140-400); Red Cell Distribution Width 19.2 % (11.5-14.5); White Blood Count 12.9 K/mcL (4.3-11.1)
[2020-01-01 09:37] LABS: Calcium 9.4 mg/dL (8.6-10.3); Potassium 3.9 mEq/L (3.5-5.1)
[2020-01-01] MEDS: Insulin LISPRO 300 UNITS/3 ML VIAL SQ SCH ×7 (10:01→21:47)
[2020-01-01] MEDS: Cholecalciferol (D-3) 1,000 UNIT (25MCG) TABLET PO SCH (10:10)
[2020-01-01] MEDS: Aspirin 81 MG TAB.CHEW PO SCH (10:10)
[2020-01-01] MEDS: PARoxetine 20 MG TABLET PO SCH (10:10)
[2020-01-01] MEDS: predniSONE 20 MG TABLET PO SCH (10:10)
[2020-01-01] MEDS: DilTIAZem CD (24hr) 240 MG CAP.ER.24H PO SCH (10:10)
[2020-01-01] MEDS: Insulin DETEMIR 100 UNIT/ML X5UNITS SQ SCH ×2 (10:10→21:48)
[2020-01-01] MEDS: Cyanocobalamin (B-12) 1,000 MCG TABLET PO SCH (10:11)
[2020-01-01] MEDS: Cefepime HCl 1,000 MG in Water for inj. (sterile) 10 ML IVP SCH (18:13)
[2020-01-02] MEDS: Levalbuterol Neb 1.25 MG/3 ML IH SCH ×5 (03:36→20:39)
[2020-01-02] MEDS: *HR* Heparin 5,000 UNIT/ML VIAL SQ SCH ×2 (05:32→17:08)
[2020-01-02 05:38] LABS: Hematocrit 23.3 % (35.3-44.9); Mean Corpuscular Hemoglobin 28.3 pg (28.0-33.3); Mean Corpuscular Volume 94.3 fL (83.0-100.0); Mean Platelet Volume 10.3 fL (9.4-12.4); Platelet Count 161 K/mcL (140-400); Red Blood Count 2.47 M/mcL (3.82-4.97); Red Cell Distribution Width 19.3 % (11.5-14.5); White Blood Count 12.9 K/mcL (4.3-11.1)
[2020-01-02 06:01] LABS: Calcium 9.3 mg/dL (8.6-10.3); Potassium 4.5 mEq/L (3.5-5.1)
[2020-01-02] MEDS ORDERED: 0.9 % Sodium Chloride 250 ML IVC PRN (07:24)
[2020-01-02] MEDS ORDERED: 0.9 % Sodium Chloride 1,000 ML PRIME SCH (07:30)
[2020-01-02] MEDS: Budesonide/Formoterol 80/4.5 1 PUFF INH IH SCH ×2 (07:38→20:39)
[2020-01-02] MEDS: Cyanocobalamin (B-12) 1,000 MCG TABLET PO SCH (08:16)
[2020-01-02] MEDS: Cholecalciferol (D-3) 1,000 UNIT (25MCG) TABLET PO SCH (08:16)
[2020-01-02] MEDS: Aspirin 81 MG TAB.CHEW PO SCH (08:16)
[2020-01-02] MEDS: predniSONE 20 MG TABLET PO SCH (08:16)
[2020-01-02] MEDS: DilTIAZem CD (24hr) 240 MG CAP.ER.24H PO SCH (08:17)
[2020-01-02] MEDS: PARoxetine 20 MG TABLET PO SCH (08:17)
[2020-01-02] MEDS: Insulin LISPRO 300 UNITS/3 ML VIAL SQ SCH ×7 (08:21→21:46)
[2020-01-02] MEDS: Insulin DETEMIR 100 UNIT/ML X5UNITS SQ SCH ×2 (08:22→21:47)
[2020-01-02] MEDS ORDERED: *HR* Heparin 10,000 UNIT/10 ML VIAL ONE (11:40)
[2020-01-02] MEDS: Cefepime HCl 1,000 MG in Water for inj. (sterile) 10 ML IVP SCH (17:06)
[2020-01-03] MEDS: Levalbuterol Neb 1.25 MG/3 ML IH SCH ×6 (00:39→20:15)
[2020-01-03 05:55] LABS: Hematocrit 23.4 % (35.3-44.9); Mean Corpuscular HGB Conc 29.9 g/dL (31.6-35.5); Mean Corpuscular Hemoglobin 28.7 pg (28.0-33.3); Mean Corpuscular Volume 95.9 fL (83.0-100.0); Mean Platelet Volume 10.6 fL (9.4-12.4); Platelet Count 160 K/mcL (140-400); Red Blood Count 2.44 M/mcL (3.82-4.97); Red Cell Distribution Width 19.7 % (11.5-14.5); White Blood Count 11.7 K/mcL (4.3-11.1)
[2020-01-03 06:00] LABS: INR 1.2; Prothrombin Time 13.6 Seconds (9.4-12.1)
[2020-01-03 06:16] LABS: Calcium 9.2 mg/dL (8.6-10.3); Potassium 4.3 mEq/L (3.5-5.1)
[2020-01-03] MEDS: *HR* Heparin 5,000 UNIT/ML VIAL SQ SCH ×2 (06:18→17:43)
[2020-01-03] MEDS: Insulin LISPRO 300 UNITS/3 ML VIAL SQ SCH ×7 (06:19→23:55)
[2020-01-03] MEDS: Budesonide/Formoterol 80/4.5 1 PUFF INH IH SCH ×2 (07:28→20:15)
[2020-01-03] MEDS ORDERED: Heparin 1,000 UNITS/500 mL 500 ML ONE (08:12)
[2020-01-03] MEDS ORDERED: Lidocaine/EPI 1:100k 1% 50 ML VIAL ONE (08:12)
[2020-01-03] MEDS ORDERED: Clindamycin 600 MG/50 ML 600 MG/50 ML IV.SOLN IVPB ONE (08:27)
[2020-01-03] MEDS ORDERED: *HR* FentaNYL (PF) 100 MCG/2 ML VIAL IVP ONE (08:27)
[2020-01-03] MEDS ORDERED: *HR* Midazolam HCl 2 MG/2 ML VIAL IVP ONE (08:27)
[2020-01-03] MEDS ORDERED: 0.9 % Sodium Chloride 500 ML ONE (08:57)
[2020-01-03] MEDS ORDERED: *HR* Heparin 5,000 UNIT/ML VIAL ONE (09:15)
[2020-01-03] MEDS: Cyanocobalamin (B-12) 1,000 MCG TABLET PO SCH (11:07)
[2020-01-03] MEDS: Aspirin 81 MG TAB.CHEW PO SCH ×2 (11:07→11:08)
[2020-01-03] MEDS: DilTIAZem CD (24hr) 240 MG CAP.ER.24H PO SCH (11:07)
[2020-01-03] MEDS ORDERED: 0.9 % Sodium Chloride 250 ML IVC PRN (11:08)
[2020-01-03] MEDS: Cholecalciferol (D-3) 1,000 UNIT (25MCG) TABLET PO SCH (11:08)
[2020-01-03] MEDS: PARoxetine 20 MG TABLET PO SCH (11:09)
[2020-01-03] MEDS: Insulin DETEMIR 100 UNIT/ML X5UNITS SQ SCH ×2 (11:10→23:55)
[2020-01-03] MEDS ORDERED: 0.9 % Sodium Chloride 1,000 ML ONE (12:12)
[2020-01-03] MEDS: Bumetanide 1 MG TABLET PO SCH (12:50)
[2020-01-03] MEDS ORDERED: *HR* Heparin 10,000 UNIT/10 ML VIAL ONE (15:44)
[2020-01-03] MEDS: Cefepime HCl 1,000 MG in Water for inj. (sterile) 10 ML IVP SCH (17:52)
[2020-01-04] MEDS: Levalbuterol Neb 1.25 MG/3 ML IH SCH ×7 (00:17→23:28)
[2020-01-04] MEDS: *HR* Heparin 5,000 UNIT/ML VIAL SQ SCH ×2 (06:36→18:53)
[2020-01-04 07:17] LABS: Hemoglobin 6.7 g/dL (11.5-15.4)
[2020-01-04 07:18] LABS: Basophils % 0.1 %; Eosinophils # 0.1 K/mcL (0.0-0.6); Hematocrit 22.6 % (35.3-44.9); Immature Granulocytes % 0.5 % (0-4); Lymphocytes # 0.4 K/mcL (0.6-4.6); Mean Corpuscular HGB Conc 29.6 g/dL (31.6-35.5); Mean Corpuscular Hemoglobin 28.4 pg (28.0-33.3); Mean Corpuscular Volume 95.8 fL (83.0-100.0); Mean Platelet Volume 10.4 fL (9.4-12.4); Monocytes # 1.3 K/mcL (0.0-1.3); Monocytes % 12.1 %; Neutrophils # 8.6 K/mcL (1.6-8.9); Platelet Count 150 K/mcL (140-400); Red Blood Count 2.36 M/mcL (3.82-4.97); Red Cell Distribution Width 19.7 % (11.5-14.5); Segmented Neutrophils % 82.3 %; White Blood Count 10.5 K/mcL (4.3-11.1)
[2020-01-04 07:30] LABS: Potassium 5.1 mEq/L (3.5-5.1)
[2020-01-04] MEDS ORDERED: 0.9 % Sodium Chloride 250 ML IVC PRN (07:32)
[2020-01-04] MEDS ORDERED: 0.9 % Sodium Chloride 1,000 ML ONE (07:54)
[2020-01-04] MEDS ORDERED: *HR* Heparin 10,000 UNIT/10 ML VIAL IV PRN (07:57)
[2020-01-04] MEDS ORDERED: Iron Sucrose Complex 400 MG in 0.9 % Sodium Chloride 250 ML IVPB ONE (08:00)
[2020-01-04] MEDS: Budesonide/Formoterol 80/4.5 1 PUFF INH IH SCH ×2 (08:04→19:47)
[2020-01-04 08:06] LABS: Anisocytosis 1+ (Not Present); Platelet Estimate Normal (Normal); Poikilocytosis 1+ (Not Present)
[2020-01-04 08:24] LABS: Magnesium 2.1 mg/dL (1.6-2.6); Phosphorous 4.1 mg/dL (2.7-4.5)
[2020-01-04] MEDS: Bumetanide 1 MG TABLET PO SCH (09:37)
[2020-01-04] MEDS: Insulin DETEMIR 100 UNIT/ML X5UNITS SQ SCH (09:41)
[2020-01-04] MEDS: Insulin LISPRO 300 UNITS/3 ML VIAL SQ SCH ×7 (09:42→20:52)
[2020-01-04] MEDS: DilTIAZem CD (24hr) 240 MG CAP.ER.24H PO SCH (10:00)
[2020-01-04] MEDS: PARoxetine 20 MG TABLET PO SCH (10:15)
[2020-01-04] MEDS: Cyanocobalamin (B-12) 1,000 MCG TABLET PO SCH (10:15)
[2020-01-04] MEDS: Cholecalciferol (D-3) 1,000 UNIT (25MCG) TABLET PO SCH (10:15)
[2020-01-04] MEDS ORDERED: 0.9 % Sodium Chloride 250 ML ONE (13:18)
[2020-01-04 17:51] LABS: Hematocrit 23.5 % (35.3-44.9); Hemoglobin 7.3 g/dL (11.5-15.4)
[2020-01-04] MEDS: Cefepime HCl 1,000 MG in Water for inj. (sterile) 10 ML IVP SCH (18:59)
[2020-01-05] MEDS: Levalbuterol Neb 1.25 MG/3 ML IH SCH ×6 (03:50→23:27)
[2020-01-05 05:06] LABS: Eosinophils # 0.1 K/mcL (0.0-0.6); Eosinophils % 0.8 %; Hematocrit 24.8 % (35.3-44.9); Hemoglobin 7.6 g/dL (11.5-15.4); Immature Granulocytes % 0.8 % (0-4); Lymphocytes # 0.3 K/mcL (0.6-4.6); Lymphocytes % 3.7 %; Mean Corpuscular HGB Conc 30.6 g/dL (31.6-35.5); Mean Corpuscular Hemoglobin 28.5 pg (28.0-33.3); Mean Corpuscular Volume 92.9 fL (83.0-100.0); Mean Platelet Volume 10.6 fL (9.4-12.4); Monocytes % 11.4 %; Neutrophils # 7.6 K/mcL (1.6-8.9); Platelet Count 148 K/mcL (140-400); Red Blood Count 2.67 M/mcL (3.82-4.97); Red Cell Distribution Width 18.9 % (11.5-14.5); Segmented Neutrophils % 83.3 %; White Blood Count 9.2 K/mcL (4.3-11.1)
[2020-01-05] MEDS: *HR* Heparin 5,000 UNIT/ML VIAL SQ SCH ×2 (05:13→18:17)
[2020-01-05 05:27] LABS: Calcium 8.5 mg/dL (8.6-10.3); Magnesium 1.9 mg/dL (1.6-2.6); Phosphorous 3.1 mg/dL (2.7-4.5); Potassium 3.6 mEq/L (3.5-5.1)
[2020-01-05] MEDS: Budesonide/Formoterol 80/4.5 1 PUFF INH IH SCH ×2 (07:46→20:16)
[2020-01-05] MEDS ORDERED: Perflutren Lipid Microsphere 1.3 ML in 0.9 % Sodium Chloride 8.7 ML IVP PRN (08:15)
[2020-01-05] MEDS: Insulin LISPRO 300 UNITS/3 ML VIAL SQ SCH ×7 (09:07→21:36)
[2020-01-05] MEDS: Aspirin 81 MG TAB.CHEW PO SCH (09:09)
[2020-01-05] MEDS: Cholecalciferol (D-3) 1,000 UNIT (25MCG) TABLET PO SCH (09:11)
[2020-01-05] MEDS: Bumetanide 1 MG TABLET PO SCH (09:11)
[2020-01-05] MEDS: Cyanocobalamin (B-12) 1,000 MCG TABLET PO SCH (09:11)
[2020-01-05] MEDS: PARoxetine 20 MG TABLET PO SCH (09:11)
[2020-01-05] MEDS: DilTIAZem CD (24hr) 180 MG CAP.ER.24H PO SCH (09:11)
[2020-01-05] MEDS: Bumetanide 1 MG/4 ML VIAL IVP SCH (18:18)
[2020-01-05] MEDS: Insulin DETEMIR 100 UNIT/ML X5UNITS SQ SCH (21:39)
[2020-01-06 03:24] LABS: Eosinophils # 0.2 K/mcL (0.0-0.6); Eosinophils % 1.5 %; Hematocrit 25.4 % (35.3-44.9); Hemoglobin 7.5 g/dL (11.5-15.4); Immature Granulocytes % 0.5 % (0-4); Lymphocytes # 0.5 K/mcL (0.6-4.6); Lymphocytes % 4.4 %; Mean Corpuscular HGB Conc 29.5 g/dL (31.6-35.5); Mean Corpuscular Hemoglobin 28.1 pg (28.0-33.3); Mean Corpuscular Volume 95.1 fL (83.0-100.0); Mean Platelet Volume 11.3 fL (9.4-12.4); Monocytes # 1.3 K/mcL (0.0-1.3); Monocytes % 11.7 %; Neutrophils # 9.4 K/mcL (1.6-8.9); Platelet Count 174 K/mcL (140-400); Red Blood Count 2.67 M/mcL (3.82-4.97); Red Cell Distribution Width 19.1 % (11.5-14.5); Segmented Neutrophils % 81.9 %; White Blood Count 11.5 K/mcL (4.3-11.1)
[2020-01-06 03:38] LABS: Calcium 8.6 mg/dL (8.6-10.3); Magnesium 1.9 mg/dL (1.6-2.6); Phosphorous 3.9 mg/dL (2.7-4.5); Potassium 3.8 mEq/L (3.5-5.1)
[2020-01-06] MEDS: Levalbuterol Neb 1.25 MG/3 ML IH SCH ×6 (04:05→23:53)
[2020-01-06] MEDS: *HR* Heparin 5,000 UNIT/ML VIAL SQ SCH ×2 (05:05→18:00)
[2020-01-06] MEDS ORDERED: 0.9 % Sodium Chloride 250 ML IVC PRN (06:44)
[2020-01-06] MEDS ORDERED: 0.9 % Sodium Chloride 1,000 ML PRIME SCH (06:45)
[2020-01-06] MEDS: Budesonide/Formoterol 80/4.5 1 PUFF INH IH SCH ×2 (07:44→20:03)
[2020-01-06] MEDS ORDERED: *HR* Heparin 10,000 UNIT/10 ML VIAL IV PRN (10:50)
[2020-01-06] MEDS: Insulin LISPRO 300 UNITS/3 ML VIAL SQ SCH ×7 (12:28→21:11)
[2020-01-06] MEDS: Bumetanide 1 MG/4 ML VIAL IVP SCH ×2 (12:53→17:59)
[2020-01-06] MEDS: DilTIAZem CD (24hr) 180 MG CAP.ER.24H PO SCH (12:54)
[2020-01-06] MEDS: Cholecalciferol (D-3) 1,000 UNIT (25MCG) TABLET PO SCH (12:54)
[2020-01-06] MEDS: Cyanocobalamin (B-12) 1,000 MCG TABLET PO SCH (12:54)
[2020-01-06] MEDS: PARoxetine 20 MG TABLET PO SCH (12:54)
[2020-01-06] MEDS: Aspirin 81 MG TAB.CHEW PO SCH (12:55)
[2020-01-06] MEDS: Insulin DETEMIR 100 UNIT/ML X5UNITS SQ SCH (21:23)
[2020-01-07] MEDS: Levalbuterol Neb 1.25 MG/3 ML IH SCH ×5 (04:22→20:05)
[2020-01-07] MEDS: *HR* Heparin 5,000 UNIT/ML VIAL SQ SCH ×2 (05:32→17:17)
[2020-01-07] MEDS: Insulin LISPRO 300 UNITS/3 ML VIAL SQ SCH ×8 (07:30→20:35)
[2020-01-07] MEDS: Aspirin 81 MG TAB.CHEW PO SCH (07:41)
[2020-01-07] MEDS: Bumetanide 1 MG/4 ML VIAL IVP SCH ×2 (07:41→17:17)
[2020-01-07] MEDS: PARoxetine 20 MG TABLET PO SCH (07:41)
[2020-01-07] MEDS: Cyanocobalamin (B-12) 1,000 MCG TABLET PO SCH (07:41)
[2020-01-07] MEDS: Cholecalciferol (D-3) 1,000 UNIT (25MCG) TABLET PO SCH (07:41)
[2020-01-07] MEDS: DilTIAZem CD (24hr) 180 MG CAP.ER.24H PO SCH (07:41)
[2020-01-07] MEDS: Budesonide/Formoterol 80/4.5 1 PUFF INH IH SCH ×2 (08:11→20:05)
[2020-01-07 11:22] LABS: Hematocrit 25.2 % (35.3-44.9); Hemoglobin 7.9 g/dL (11.5-15.4); Mean Corpuscular HGB Conc 31.3 g/dL (31.6-35.5); Mean Corpuscular Hemoglobin 28.7 pg (28.0-33.3); Mean Corpuscular Volume 91.6 fL (83.0-100.0); Mean Platelet Volume 10.9 fL (9.4-12.4); Platelet Count 205 K/mcL (140-400); Red Blood Count 2.75 M/mcL (3.82-4.97); Red Cell Distribution Width 19.3 % (11.5-14.5); White Blood Count 10.2 K/mcL (4.3-11.1)
[2020-01-07 11:34] LABS: Calcium 8.6 mg/dL (8.6-10.3); Magnesium 1.9 mg/dL (1.6-2.6); Potassium 4.1 mEq/L (3.5-5.1)
[2020-01-07 12:59] LABS: ABG Base Excess 3 mEq/L (-2 to 3); ABG HCO3 28 mEq/L (21-27); ABG Oxygen Saturation 90 % (95-98); ABG PCO2 44 mmHg (35-45); ABG PH 7.41 pH Units (7.32-7.45); ABG PO2 59 mmHg (85-104); ABG TCO2 29 mEq/L (20-26)
[2020-01-07] MEDS: Insulin DETEMIR 100 UNIT/ML X5UNITS SQ SCH (20:36)
[2020-01-08] MEDS: Levalbuterol Neb 1.25 MG/3 ML IH SCH ×6 (00:04→20:13)
[2020-01-08] MEDS: *HR* Heparin 5,000 UNIT/ML VIAL SQ SCH ×2 (05:24→17:30)
[2020-01-08 06:12] LABS: Hematocrit 24.6 % (35.3-44.9); Hemoglobin 7.2 g/dL (11.5-15.4); Mean Corpuscular HGB Conc 29.3 g/dL (31.6-35.5); Mean Corpuscular Hemoglobin 27.7 pg (28.0-33.3); Mean Corpuscular Volume 94.6 fL (83.0-100.0); Mean Platelet Volume 10.9 fL (9.4-12.4); Platelet Count 197 K/mcL (140-400); Red Cell Distribution Width 19.3 % (11.5-14.5); White Blood Count 9.9 K/mcL (4.3-11.1)
[2020-01-08 06:35] LABS: Calcium 8.5 mg/dL (8.6-10.3); Magnesium 1.9 mg/dL (1.6-2.6); Phosphorous 4.2 mg/dL (2.7-4.5)
[2020-01-08] MEDS: Budesonide/Formoterol 80/4.5 1 PUFF INH IH SCH ×2 (07:31→20:13)
[2020-01-08] MEDS: Insulin LISPRO 300 UNITS/3 ML VIAL SQ SCH ×7 (09:36→20:41)
[2020-01-08] MEDS: Cholecalciferol (D-3) 1,000 UNIT (25MCG) TABLET PO SCH (09:37)
[2020-01-08] MEDS: Cyanocobalamin (B-12) 1,000 MCG TABLET PO SCH (09:37)
[2020-01-08] MEDS: DilTIAZem CD (24hr) 180 MG CAP.ER.24H PO SCH (09:37)
[2020-01-08] MEDS: Bumetanide 1 MG/4 ML VIAL IVP SCH (09:37)
[2020-01-08] MEDS: Aspirin 81 MG TAB.CHEW PO SCH (09:37)
[2020-01-08] MEDS: PARoxetine 20 MG TABLET PO SCH (09:37)
[2020-01-08] MEDS ORDERED: Bumetanide 1 MG/4 ML VIAL IVP SCH (17:00)
[2020-01-08] MEDS ORDERED: Bumetanide 1 MG TABLET PO SCH (17:00)
[2020-01-08] MEDS: Bumetanide 1 MG TABLET PO SCH (19:00)
[2020-01-08] MEDS: Insulin DETEMIR 100 UNIT/ML X5UNITS SQ SCH (20:46)
[2020-01-09] MEDS: Levalbuterol Neb 1.25 MG/3 ML IH SCH ×6 (04:00→20:02)
[2020-01-09] MEDS: Bumetanide 1 MG TABLET PO SCH (05:39)
[2020-01-09] MEDS: *HR* Heparin 5,000 UNIT/ML VIAL SQ SCH ×2 (05:40→18:01)
[2020-01-09 05:49] LABS: Hematocrit 24.3 % (35.3-44.9); Hemoglobin 7.4 g/dL (11.5-15.4); Mean Corpuscular HGB Conc 30.5 g/dL (31.6-35.5); Mean Corpuscular Hemoglobin 29.1 pg (28.0-33.3); Mean Corpuscular Volume 95.7 fL (83.0-100.0); Mean Platelet Volume 10.9 fL (9.4-12.4); Platelet Count 213 K/mcL (140-400); Red Blood Count 2.54 M/mcL (3.82-4.97); Red Cell Distribution Width 19.8 % (11.5-14.5); White Blood Count 9.1 K/mcL (4.3-11.1)
[2020-01-09 05:52] LABS: Calcium 8.7 mg/dL (8.6-10.3); Magnesium 1.9 mg/dL (1.6-2.6); Phosphorous 4.9 mg/dL (2.7-4.5)
[2020-01-09] MEDS: Budesonide/Formoterol 80/4.5 1 PUFF INH IH SCH ×2 (07:39→20:02)
[2020-01-09] MEDS ORDERED: *HR* Heparin 10,000 UNIT/10 ML VIAL IV PRN ×2 (07:42)
[2020-01-09] MEDS ORDERED: 0.9 % Sodium Chloride 250 ML IVC PRN (07:42)
[2020-01-09] MEDS: DilTIAZem CD (24hr) 180 MG CAP.ER.24H PO SCH (08:04)
[2020-01-09] MEDS: Insulin LISPRO 300 UNITS/3 ML VIAL SQ SCH ×7 (08:04→20:48)
[2020-01-09] MEDS: Cholecalciferol (D-3) 1,000 UNIT (25MCG) TABLET PO SCH (08:04)
[2020-01-09] MEDS: PARoxetine 20 MG TABLET PO SCH (08:04)
[2020-01-09] MEDS: Cyanocobalamin (B-12) 1,000 MCG TABLET PO SCH (08:05)
[2020-01-09] MEDS: Aspirin 81 MG TAB.CHEW PO SCH (08:05)
[2020-01-09] MEDS: Insulin DETEMIR 100 UNIT/ML X5UNITS SQ SCH (20:46)
[2020-01-10] MEDS: Levalbuterol Neb 1.25 MG/3 ML IH SCH ×6 (00:12→20:19)
[2020-01-10] MEDS: *HR* Heparin 5,000 UNIT/ML VIAL SQ SCH ×2 (05:24→17:10)
[2020-01-10] MEDS: Budesonide/Formoterol 80/4.5 1 PUFF INH IH SCH ×2 (07:51→20:19)
[2020-01-10] MEDS: Insulin LISPRO 300 UNITS/3 ML VIAL SQ SCH ×7 (08:18→20:30)
[2020-01-10] MEDS: DilTIAZem CD (24hr) 180 MG CAP.ER.24H PO SCH (08:24)
[2020-01-10] MEDS: Cholecalciferol (D-3) 1,000 UNIT (25MCG) TABLET PO SCH (08:27)
[2020-01-10] MEDS: Aspirin 81 MG TAB.CHEW PO SCH (08:27)
[2020-01-10] MEDS: Bumetanide 1 MG TABLET PO SCH (08:27)
[2020-01-10] MEDS: Cyanocobalamin (B-12) 1,000 MCG TABLET PO SCH (08:27)
[2020-01-10] MEDS: PARoxetine 20 MG TABLET PO SCH (08:27)
[2020-01-10 13:41] LABS: Hemoglobin 7.4 g/dL (11.5-15.4); Mean Corpuscular HGB Conc 30.8 g/dL (31.6-35.5); Mean Corpuscular Hemoglobin 29.2 pg (28.0-33.3); Mean Corpuscular Volume 94.9 fL (83.0-100.0); Mean Platelet Volume 10.9 fL (9.4-12.4); Platelet Count 241 K/mcL (140-400); Red Blood Count 2.53 M/mcL (3.82-4.97); Red Cell Distribution Width 19.9 % (11.5-14.5)
[2020-01-10 13:59] LABS: Calcium 8.9 mg/dL (8.6-10.3); Magnesium 1.8 mg/dL (1.6-2.6); Phosphorous 3.6 mg/dL (2.7-4.5); Potassium 3.9 mEq/L (3.5-5.1)
[2020-01-10] MEDS ORDERED: 0.9 % Sodium Chloride 250 ML ONE (14:53)
[2020-01-10] MEDS: Insulin DETEMIR 100 UNIT/ML X5UNITS SQ SCH (20:30)
[2020-01-11 00:34] LABS: Basophils % 0.1 %; Eosinophils # 0.1 K/mcL (0.0-0.6); Hematocrit 26.7 % (35.3-44.9); Hemoglobin 8.1 g/dL (11.5-15.4); Immature Granulocytes % 0.5 % (0-4); Lymphocytes # 0.5 K/mcL (0.6-4.6); Lymphocytes % 5.6 %; Mean Corpuscular HGB Conc 30.3 g/dL (31.6-35.5); Mean Corpuscular Hemoglobin 28.5 pg (28.0-33.3); Mean Platelet Volume 10.7 fL (9.4-12.4); Monocytes % 12.2 %; Neutrophils # 6.5 K/mcL (1.6-8.9); Platelet Count 219 K/mcL (140-400); Red Blood Count 2.84 M/mcL (3.82-4.97); Segmented Neutrophils % 80.6 %; White Blood Count 8.1 K/mcL (4.3-11.1)
[2020-01-11] MEDS: Levalbuterol Neb 1.25 MG/3 ML IH SCH ×7 (00:36→23:20)
[2020-01-11] MEDS: *HR* Heparin 5,000 UNIT/ML VIAL SQ SCH ×2 (05:59→17:04)
[2020-01-11] MEDS ORDERED: 0.9 % Sodium Chloride 2,000 ML ONE (07:13)
[2020-01-11 07:19] LABS: Calcium 8.7 mg/dL (8.6-10.3); Potassium 4.2 mEq/L (3.5-5.1)
[2020-01-11] MEDS: Budesonide/Formoterol 80/4.5 1 PUFF INH IH SCH ×2 (07:47→20:10)
[2020-01-11] MEDS ORDERED: 0.9 % Sodium Chloride 250 ML IVC PRN (08:09)
[2020-01-11] MEDS ORDERED: *HR* Heparin 10,000 UNIT/10 ML VIAL IV PRN ×2 (08:09)
[2020-01-11] MEDS: Insulin LISPRO 300 UNITS/3 ML VIAL SQ SCH ×7 (08:48→20:24)
[2020-01-11] MEDS: Cholecalciferol (D-3) 1,000 UNIT (25MCG) TABLET PO SCH (08:50)
[2020-01-11] MEDS: PARoxetine 20 MG TABLET PO SCH (08:50)
[2020-01-11] MEDS: DilTIAZem CD (24hr) 180 MG CAP.ER.24H PO SCH (08:50)
[2020-01-11] MEDS: Bumetanide 1 MG TABLET PO SCH (08:50)
[2020-01-11] MEDS: Cyanocobalamin (B-12) 1,000 MCG TABLET PO SCH (08:50)
[2020-01-11] MEDS: Aspirin 81 MG TAB.CHEW PO SCH (08:50)
[2020-01-11] MEDS: Insulin DETEMIR 100 UNIT/ML X5UNITS SQ SCH (20:26)
[2020-01-12] MEDS: Levalbuterol Neb 1.25 MG/3 ML IH SCH ×4 (04:09→16:07)
[2020-01-12] MEDS: *HR* Heparin 5,000 UNIT/ML VIAL SQ SCH (06:54)
[2020-01-12 07:48] VITALS: BP 122/68
[2020-01-12] MEDS: Budesonide/Formoterol 80/4.5 1 PUFF INH IH SCH (07:51)
[2020-01-12] MEDS: Aspirin 81 MG TAB.CHEW PO SCH (09:16)
[2020-01-12] MEDS: Cholecalciferol (D-3) 1,000 UNIT (25MCG) TABLET PO SCH (09:16)
[2020-01-12] MEDS: DilTIAZem CD (24hr) 180 MG CAP.ER.24H PO SCH (09:16)
[2020-01-12] MEDS: Insulin LISPRO 300 UNITS/3 ML VIAL SQ SCH ×4 (09:16→12:14)
[2020-01-12] MEDS: Bumetanide 1 MG TABLET PO SCH (09:16)
[2020-01-12] MEDS: PARoxetine 20 MG TABLET PO SCH (09:17)
[2020-01-12] MEDS: Cyanocobalamin (B-12) 1,000 MCG TABLET PO SCH (09:17)
[2020-01-12 16:11] LABS: Adenovirus Not Detected (Not Detect); Coronavirus 229E Not Detected (Not Detect); Coronavirus HKU1 Not Detected (Not Detect); Coronavirus NL63 Not Detected (Not Detect); Coronavirus OC43 Not Detected (Not Detect); Human Metapneumovirus Not Detected (Not Detect); Human Rhinovirus/Enterovirus Not Detected (Not Detect); Influenza A Subtype 2009 H1 Not Detected (Not Detect); Influenza B Not Detected (Not Detect); Parainfluenza Virus 1 Not Detected (Not Detect); Parainfluenza Virus 2 Not Detected (Not Detect); Parainfluenza Virus 3 Not Detected (Not Detect); Parainfluenza Virus 4 Not Detected (Not Detect); Respiratory Syncytial Virus Not Detected (Not Detect); SARS-CoV-2 Not Detected (Not Detect)
[2020-01-12 16:12] LABS: Bordetella Pertussis Not Detected (Not Detect); Chlamydophila pneumoniae Not Detected (Not Detect); Mycoplasma pneumoniae Not Detected (Not Detect)
== END 2020-01-12 17:20 | DRG 280 ==
LOC: 3BNU 18:19 → EMEROOARM 18:19 → SUATTDRO 22:14 → 3BNU 22:55 → SUATTDRO 12-21 11:53 → 3ANU 12-26 20:47
PROVIDERS: ADMIT Family Medicine; ATTEND Internal Medicine
PROC: IRPERMA (2020-01-03 12:00)

== ENCOUNTER 2020-02-02 10:52 | Observation (INO) ==
[2020-02-02 11:38] LABS: Basophils % 0.3 %; Eosinophils # 0.1 K/mcL (0.0-0.6); Eosinophils % 0.7 %; Hematocrit 27.7 % (35.3-44.9); Hemoglobin 8.4 g/dL (11.5-15.4); Lymphocytes # 0.9 K/mcL (0.6-4.6); Lymphocytes % 7.7 %; Mean Corpuscular HGB Conc 30.3 g/dL (31.6-35.5); Mean Corpuscular Hemoglobin 28.1 pg (28.0-33.3); Mean Corpuscular Volume 92.6 fL (83.0-100.0); Mean Platelet Volume 9.5 fL (9.4-12.4); Monocytes # 1.3 K/mcL (0.0-1.3); Monocytes % 11.4 %; Neutrophils # 8.8 K/mcL (1.6-8.9); Platelet Count 294 K/mcL (140-400); Red Blood Count 2.99 M/mcL (3.82-4.97); Red Cell Distribution Width 17.2 % (11.5-14.5); Segmented Neutrophils % 78.9 %; White Blood Count 11.2 K/mcL (4.3-11.1)
[2020-02-02 11:43] LABS: INR 1.2; Prothrombin Time 13.9 Seconds (9.4-12.1)
[2020-02-02 11:46] LABS: Activated Partial Thrombo Time 28.1 Seconds (26.0-36.0)
[2020-02-02 12:01] LABS: Alanine Aminotransferase 15 Units/L (7-52); Alkaline Phosphatase 118 Units/L (34-104); Aspartate Amino Transferase 15 Units/L (13-39); BUN/Creatinine Ratio 6 (6-26); Bilirubin,Direct 0.4 mg/dL (0.0-0.2); Bilirubin,Indirect 0.4 mg/dL (0.0-1.0); Bilirubin,Total 0.8 mg/dL (0.3-1.0); Blood Urea Nitrogen 17 mg/dL (8-23); Calcium 8.5 mg/dL (8.6-10.3); Carbon Dioxide 28 mEq/L (23-29); Chloride 95 mEq/L (98-107); Globulin 3.1 g/dL (2.4-3.5); Glucose 129 mg/dL (70-105); Magnesium 1.8 mg/dL (1.6-2.6); Osmolality,Calculated 281 (280-300); Potassium 3.3 mEq/L (3.5-5.1); Sodium 134 mEq/L (136-145); Total Protein 6.1 g/dL (6.4-8.9); Troponin I < 0.03 ng/mL (< 0.04); eGFR For African Americans 21 (> 60); eGFR For Non-African Americans 17 (> 60)
[2020-02-02] MEDS ORDERED: Naloxone 0.4 MG/ML INJ IVP PRN (13:20)
[2020-02-02] MEDS ORDERED: *HR* Dextrose 50 % in Water (Vial) 50 ML VIAL IVP PRN (13:22)
[2020-02-02] MEDS ORDERED: Dextrose Gel 15 GM/37.5 ML TUBE PO PRN ×2 (13:22)
[2020-02-02] MEDS ORDERED: D5% in Water 1,000 ML IVC PRN (13:22)
[2020-02-02] MEDS ORDERED: Ipratropium/Albuterol Neb 3 ML IH PRN (13:25)
[2020-02-02] MEDS: Insulin LISPRO 300 UNITS/3 ML VIAL SQ SCH ×3 (14:57→21:36)
[2020-02-02] MEDS: *HR* Heparin 5,000 UNIT/ML VIAL SQ SCH (18:20)
[2020-02-03 03:45] LABS: Basophils % 0.4 %; Eosinophils # 0.1 K/mcL (0.0-0.6); Eosinophils % 0.8 %; Hematocrit 28.3 % (35.3-44.9); Hemoglobin 8.6 g/dL (11.5-15.4); Immature Granulocytes % 0.8 % (0-4); Lymphocytes # 0.8 K/mcL (0.6-4.6); Lymphocytes % 8.4 %; Mean Corpuscular HGB Conc 30.4 g/dL (31.6-35.5); Mean Corpuscular Hemoglobin 28.4 pg (28.0-33.3); Mean Corpuscular Volume 93.4 fL (83.0-100.0); Mean Platelet Volume 9.8 fL (9.4-12.4); Monocytes # 1.2 K/mcL (0.0-1.3); Monocytes % 11.8 %; Neutrophils # 7.7 K/mcL (1.6-8.9); Platelet Count 321 K/mcL (140-400); Red Blood Count 3.03 M/mcL (3.82-4.97); Red Cell Distribution Width 17.5 % (11.5-14.5); Segmented Neutrophils % 77.8 %; White Blood Count 9.9 K/mcL (4.3-11.1)
[2020-02-03 04:03] LABS: Calcium 8.3 mg/dL (8.6-10.3); Magnesium 1.9 mg/dL (1.6-2.6); Phosphorous 4.7 mg/dL (2.7-4.5); Potassium 3.5 mEq/L (3.5-5.1)
[2020-02-03] MEDS: *HR* Heparin 5,000 UNIT/ML VIAL SQ SCH ×2 (06:09→17:09)
[2020-02-03] MEDS ORDERED: 0.9 % Sodium Chloride 250 ML IVC PRN (08:06)
[2020-02-03] MEDS ORDERED: *HR* Heparin 10,000 UNIT/10 ML VIAL IV PRN ×2 (08:06)
[2020-02-03] MEDS ORDERED: 0.9 % Sodium Chloride 1,000 ML PRIME SCH (08:15)
[2020-02-03] MEDS ORDERED: 0.9 % Sodium Chloride 1,000 ML ONE (08:16)
[2020-02-03] MEDS: Insulin LISPRO 300 UNITS/3 ML VIAL SQ SCH ×4 (08:22→20:20)
[2020-02-03 08:42] LABS: Hepatitis B Surface Antibody < 3.10 mIU/mL
[2020-02-03 08:53] LABS: Hepatitis B Surface Antigen Nonreactive (Nonreactive)
[2020-02-03] MEDS: Acetaminophen 325 MG TABLET PO PRN ×2 (12:56→20:16)
[2020-02-03] MEDS: Budesonide/Formoterol 80/4.5 1 PUFF INH IH SCH ×2 (14:29→19:49)
[2020-02-04 04:57] LABS: Hematocrit 28.8 % (35.3-44.9); Hemoglobin 8.7 g/dL (11.5-15.4); Mean Corpuscular HGB Conc 30.2 g/dL (31.6-35.5); Mean Corpuscular Hemoglobin 28.6 pg (28.0-33.3); Mean Corpuscular Volume 94.7 fL (83.0-100.0); Mean Platelet Volume 9.8 fL (9.4-12.4); Platelet Count 316 K/mcL (140-400); Red Blood Count 3.04 M/mcL (3.82-4.97); Red Cell Distribution Width 17.2 % (11.5-14.5)
[2020-02-04 05:28] LABS: Calcium 8.4 mg/dL (8.6-10.3); Potassium 4.5 mEq/L (3.5-5.1)
[2020-02-04] MEDS: *HR* Heparin 5,000 UNIT/ML VIAL SQ SCH ×2 (05:46→16:50)
[2020-02-04] MEDS: Budesonide/Formoterol 80/4.5 1 PUFF INH IH SCH ×2 (07:21→20:00)
[2020-02-04] MEDS: Insulin LISPRO 300 UNITS/3 ML VIAL SQ SCH ×4 (08:15→20:26)
[2020-02-04] MEDS: PARoxetine 20 MG TABLET PO SCH (08:16)
[2020-02-04] MEDS: Aspirin 81 MG TAB.CHEW PO SCH (08:16)
[2020-02-04] MEDS: MetroNIDAZOLE 500 MG/100 ML 500 MG/100 ML BAG IVPB SCH ×2 (16:50→23:18)
[2020-02-04] MEDS: Acetaminophen 325 MG TABLET PO PRN (21:45)
[2020-02-05 03:00] LABS: Basophils % 0.4 %; Eosinophils # 0.1 K/mcL (0.0-0.6); Eosinophils % 1.7 %; Hematocrit 26.5 % (35.3-44.9); Hemoglobin 8.1 g/dL (11.5-15.4); Immature Granulocytes % 0.6 % (0-4); Lymphocytes # 1.2 K/mcL (0.6-4.6); Lymphocytes % 15.4 %; Mean Corpuscular HGB Conc 30.6 g/dL (31.6-35.5); Mean Corpuscular Hemoglobin 28.7 pg (28.0-33.3); Mean Platelet Volume 9.7 fL (9.4-12.4); Monocytes % 12.3 %; Neutrophils # 5.4 K/mcL (1.6-8.9); Platelet Count 291 K/mcL (140-400); Red Blood Count 2.82 M/mcL (3.82-4.97); Red Cell Distribution Width 17.1 % (11.5-14.5); Segmented Neutrophils % 69.6 %; White Blood Count 7.7 K/mcL (4.3-11.1)
[2020-02-05 03:21] LABS: Calcium 8.1 mg/dL (8.6-10.3)
[2020-02-05] MEDS: *HR* Heparin 5,000 UNIT/ML VIAL SQ SCH ×2 (05:44→17:05)
[2020-02-05] MEDS: Budesonide/Formoterol 80/4.5 1 PUFF INH IH SCH ×2 (09:36→20:48)
[2020-02-05] MEDS: MetroNIDAZOLE 500 MG/100 ML 500 MG/100 ML BAG IVPB SCH (09:53)
[2020-02-05] MEDS: Aspirin 81 MG TAB.CHEW PO SCH (09:53)
[2020-02-05] MEDS: PARoxetine 20 MG TABLET PO SCH (09:53)
[2020-02-05] MEDS: Insulin LISPRO 300 UNITS/3 ML VIAL SQ SCH ×4 (10:05→20:55)
[2020-02-05] MEDS ORDERED: Bumetanide 1 MG TABLET PO ONE (11:56)
[2020-02-05] MEDS: Bumetanide 1 MG TABLET PO SCH (12:39)
[2020-02-05] MEDS: Acetaminophen 325 MG TABLET PO PRN (21:11)
[2020-02-06 05:19] LABS: Basophils % 0.4 %; Eosinophils # 0.1 K/mcL (0.0-0.6); Eosinophils % 1.8 %; Hematocrit 26.4 % (35.3-44.9); Hemoglobin 8.2 g/dL (11.5-15.4); Immature Granulocytes % 0.9 % (0-4); Lymphocytes # 0.7 K/mcL (0.6-4.6); Lymphocytes % 8.9 %; Mean Corpuscular HGB Conc 31.1 g/dL (31.6-35.5); Mean Corpuscular Hemoglobin 27.8 pg (28.0-33.3); Mean Corpuscular Volume 89.5 fL (83.0-100.0); Mean Platelet Volume 9.9 fL (9.4-12.4); Monocytes # 0.7 K/mcL (0.0-1.3); Neutrophils # 5.8 K/mcL (1.6-8.9); Platelet Count 303 K/mcL (140-400); Red Blood Count 2.95 M/mcL (3.82-4.97); White Blood Count 7.4 K/mcL (4.3-11.1)
[2020-02-06 05:22] LABS: Calcium 8.5 mg/dL (8.6-10.3)
[2020-02-06] MEDS: *HR* Heparin 5,000 UNIT/ML VIAL SQ SCH ×2 (05:33→17:03)
[2020-02-06] MEDS: Acetaminophen 325 MG TABLET PO PRN ×2 (05:33→19:57)
[2020-02-06] MEDS: Budesonide/Formoterol 80/4.5 1 PUFF INH IH SCH ×2 (07:32→22:04)
[2020-02-06] MEDS ORDERED: 0.9 % Sodium Chloride 250 ML IVC PRN (07:46)
[2020-02-06] MEDS ORDERED: *HR* Heparin 10,000 UNIT/10 ML VIAL IV PRN ×2 (07:46)
[2020-02-06] MEDS: Bumetanide 1 MG TABLET PO SCH (08:43)
[2020-02-06] MEDS: Aspirin 81 MG TAB.CHEW PO SCH (08:43)
[2020-02-06] MEDS: PARoxetine 20 MG TABLET PO SCH (08:44)
[2020-02-06] MEDS: DilTIAZem CD (24hr) 120 MG CAP.ER.24H PO SCH (08:44)
[2020-02-06] MEDS: Insulin LISPRO 300 UNITS/3 ML VIAL SQ SCH ×4 (08:44→22:14)
[2020-02-06] MEDS: Lactobacillus 1 EACH CAP.SPRINK PO SCH (19:56)
[2020-02-07] MEDS: *HR* Heparin 5,000 UNIT/ML VIAL SQ SCH ×2 (05:03→17:44)
[2020-02-07 07:24] LABS: Calcium 8.4 mg/dL (8.6-10.3); Potassium 4.4 mEq/L (3.5-5.1)
[2020-02-07] MEDS: Budesonide/Formoterol 80/4.5 1 PUFF INH IH SCH ×2 (07:24→20:28)
[2020-02-07] MEDS: Insulin LISPRO 300 UNITS/3 ML VIAL SQ SCH ×4 (09:11→20:27)
[2020-02-07] MEDS: PARoxetine 20 MG TABLET PO SCH (09:11)
[2020-02-07] MEDS: Lactobacillus 1 EACH CAP.SPRINK PO SCH ×2 (09:11→20:27)
[2020-02-07] MEDS: Aspirin 81 MG TAB.CHEW PO SCH (09:11)
[2020-02-07] MEDS: DilTIAZem CD (24hr) 120 MG CAP.ER.24H PO SCH (09:41)
[2020-02-07] MEDS: Bumetanide 1 MG TABLET PO SCH (09:41)
[2020-02-08] MEDS: *HR* Heparin 5,000 UNIT/ML VIAL SQ SCH (06:16)
[2020-02-08] MEDS: Budesonide/Formoterol 80/4.5 1 PUFF INH IH SCH (07:35)
[2020-02-08] MEDS ORDERED: *HR* Heparin 10,000 UNIT/10 ML VIAL IV PRN ×2 (08:11)
[2020-02-08] MEDS ORDERED: 0.9 % Sodium Chloride 250 ML IVC PRN (08:11)
[2020-02-08] MEDS: Insulin LISPRO 300 UNITS/3 ML VIAL SQ SCH ×2 (09:08→13:04)
[2020-02-08] MEDS: PARoxetine 20 MG TABLET PO SCH (09:08)
[2020-02-08] MEDS: Lactobacillus 1 EACH CAP.SPRINK PO SCH (09:08)
[2020-02-08] MEDS: Aspirin 81 MG TAB.CHEW PO SCH (09:08)
[2020-02-08] MEDS: DilTIAZem CD (24hr) 120 MG CAP.ER.24H PO SCH (13:03)
[2020-02-08] MEDS: Bumetanide 1 MG TABLET PO SCH (13:03)
[2020-02-08 14:15] VITALS: BP 102/56
== END 2020-02-08 16:40 | disposition home health service (06) ==
LOC: EMEROOARM 10:52 → 3ANU 10:52 → SUATTDRO 13:32 → 3ANU 15:12
PROVIDERS: ADMIT Internal Medicine; ATTEND Family Medicine

== ENCOUNTER 2020-08-02 12:04 | Inpatient (IN) ==
[2020-08-02] MEDS ORDERED: Ondansetron ODT 4 MG TAB.RAPDIS SL PRN (14:00)
[2020-08-02] MEDS ORDERED: Dextrose Gel 15 GM/37.5 ML TUBE PO PRN ×2 (14:05)
[2020-08-02] MEDS ORDERED: D5% in Water 1,000 ML IVC PRN (14:05)
[2020-08-02] MEDS ORDERED: *HR* Dextrose 50 % in Water (Vial) 50 ML VIAL IVP PRN (14:05)
[2020-08-02 14:22] LABS: Basophils # 0.1 K/mcL (0.0-0.2); Basophils % 0.7 %; Eosinophils # 0.1 K/mcL (0.0-0.6); Eosinophils % 1.8 %; Hematocrit 32.9 % (35.3-44.9); Hemoglobin 10.2 g/dL (11.5-15.4); Immature Granulocytes % 0.4 % (0-4); Lymphocytes # 0.9 K/mcL (0.6-4.6); Lymphocytes % 12.7 %; Mean Corpuscular Hemoglobin 31.2 pg (28.0-33.3); Mean Corpuscular Volume 100.6 fL (83.0-100.0); Mean Platelet Volume 9.6 fL (9.4-12.4); Monocytes # 1.1 K/mcL (0.0-1.3); Monocytes % 16.3 %; Neutrophils # 4.6 K/mcL (1.6-8.9); Platelet Count 172 K/mcL (140-400); Red Blood Count 3.27 M/mcL (3.82-4.97); Red Cell Distribution Width 15.9 % (11.5-14.5); Segmented Neutrophils % 68.1 %; White Blood Count 6.8 K/mcL (4.3-11.1)
[2020-08-02 14:39] LABS: Calcium 9.1 mg/dL (8.6-10.3); Potassium 3.8 mEq/L (3.5-5.1)
[2020-08-02 14:49] LABS: INR 1.3; Prothrombin Time 14.6 Seconds (9.4-12.1)
[2020-08-02] MEDS: Insulin LISPRO 300 UNITS/3 ML VIAL SUBQ SCH ×2 (18:13→23:25)
[2020-08-02] MEDS: traZODone 50 MG TABLET PO SCH (21:30)
[2020-08-02] MEDS: *HR* Heparin 5,000 UNIT/ML VIAL SQ SCH (21:30)
[2020-08-02] MEDS: Pregabalin 50 MG CAPSULE PO SCH (21:30)
[2020-08-02] MEDS: *HR* HYDROcodone/Acet 5/325 mg TABLET PO PRN (21:30)
[2020-08-03 01:48] LABS: Hematocrit 32.5 % (35.3-44.9); Hemoglobin 10.1 g/dL (11.5-15.4); Mean Corpuscular HGB Conc 31.1 g/dL (31.6-35.5); Mean Corpuscular Hemoglobin 31.7 pg (28.0-33.3); Mean Corpuscular Volume 101.9 fL (83.0-100.0); Platelet Count 182 K/mcL (140-400); Red Blood Count 3.19 M/mcL (3.82-4.97); Red Cell Distribution Width 15.7 % (11.5-14.5); White Blood Count 6.8 K/mcL (4.3-11.1)
[2020-08-03 02:11] LABS: Calcium 8.8 mg/dL (8.6-10.3); Potassium 3.5 mEq/L (3.5-5.1)
[2020-08-03] MEDS: *HR* Heparin 5,000 UNIT/ML VIAL SQ SCH ×3 (06:47→22:28)
[2020-08-03] MEDS: Aspirin 81 MG TAB.CHEW PO SCH (08:03)
[2020-08-03] MEDS: PARoxetine 20 MG TABLET PO SCH (08:03)
[2020-08-03] MEDS: DilTIAZem CD (24hr) 120 MG CAP.ER.24H PO SCH (08:03)
[2020-08-03] MEDS: Pregabalin 50 MG CAPSULE PO SCH (08:03)
[2020-08-03] MEDS: Insulin LISPRO 300 UNITS/3 ML VIAL SUBQ SCH ×4 (08:04→22:28)
[2020-08-03] MEDS: Bumetanide 1 MG TABLET PO SCH (08:23)
[2020-08-03] MEDS ORDERED: 0.9 % Sodium Chloride 250 ML IVC PRN (10:41)
[2020-08-03] MEDS ORDERED: *HR* Heparin 10,000 UNIT/10 ML VIAL IV PRN (10:41)
[2020-08-03] MEDS ORDERED: 0.9 % Sodium Chloride 1,000 ML PRIME SCH (10:45)
[2020-08-03 11:51] LABS: Hepatitis B Surface Antibody < 3.10 mIU/mL
[2020-08-03 12:02] LABS: Hepatitis B Surface Antigen Nonreactive (Nonreactive)
[2020-08-03] MEDS: *HR* HYDROcodone/Acet 5/325 mg TABLET PO PRN ×2 (13:28→22:28)
[2020-08-03] MEDS: Pregabalin 75 MG CAPSULE PO SCH (17:14)
[2020-08-03] MEDS: Budesonide/Formoterol 80/4.5 1 PUFF INH IH SCH (19:42)
[2020-08-03] MEDS: traZODone 50 MG TABLET PO SCH (22:28)
[2020-08-03] MEDS: Insulin DETEMIR 100 UNIT/ML X5UNITS SUBQ SCH (22:29)
[2020-08-04 03:06] LABS: Calcium 9.1 mg/dL (8.6-10.3); Magnesium 2.1 mg/dL (1.6-2.6); Phosphorous 4.8 mg/dL (2.7-4.5); Potassium 4.5 mEq/L (3.5-5.1)
[2020-08-04] MEDS: *HR* Heparin 5,000 UNIT/ML VIAL SQ SCH ×3 (05:45→21:09)
[2020-08-04] MEDS: *HR* HYDROcodone/Acet 5/325 mg TABLET PO PRN ×3 (05:51→21:09)
[2020-08-04] MEDS: Budesonide/Formoterol 80/4.5 1 PUFF INH IH SCH ×2 (07:36→19:50)
[2020-08-04] MEDS: Insulin LISPRO 300 UNITS/3 ML VIAL SUBQ SCH ×4 (10:03→21:08)
[2020-08-04] MEDS: PARoxetine 20 MG TABLET PO SCH (10:03)
[2020-08-04] MEDS: Aspirin 81 MG TAB.CHEW PO SCH (10:03)
[2020-08-04] MEDS: Bumetanide 1 MG TABLET PO SCH (10:03)
[2020-08-04] MEDS: DilTIAZem CD (24hr) 120 MG CAP.ER.24H PO SCH (10:03)
[2020-08-04] MEDS: Pregabalin 75 MG CAPSULE PO SCH (17:16)
[2020-08-04] MEDS: Insulin DETEMIR 100 UNIT/ML X5UNITS SUBQ SCH (21:08)
[2020-08-04] MEDS: traZODone 50 MG TABLET PO SCH (21:09)
[2020-08-04 23:34] LABS: Influenza A PCR Negative (Negative); Influenza B PCR Negative (Negative); Resp. Syncytial Virus PCR Negative (Negative)
[2020-08-04 23:35] LABS: SARS-CoV-2 by PCR (In House) Negative (Negative)
[2020-08-05 07:29] LABS: Basophils % 0.4 %; Eosinophils # 0.1 K/mcL (0.0-0.6); Eosinophils % 1.1 %; Hematocrit 31.3 % (35.3-44.9); Hemoglobin 9.5 g/dL (11.5-15.4); Immature Granulocytes % 0.6 % (0-4); Lymphocytes # 0.6 K/mcL (0.6-4.6); Lymphocytes % 7.4 %; Mean Corpuscular HGB Conc 30.4 g/dL (31.6-35.5); Mean Corpuscular Volume 102.3 fL (83.0-100.0); Mean Platelet Volume 9.9 fL (9.4-12.4); Monocytes # 1.1 K/mcL (0.0-1.3); Monocytes % 13.3 %; Neutrophils # 6.5 K/mcL (1.6-8.9); Platelet Count 178 K/mcL (140-400); Red Blood Count 3.06 M/mcL (3.82-4.97); Red Cell Distribution Width 15.6 % (11.5-14.5); Segmented Neutrophils % 77.2 %; White Blood Count 8.4 K/mcL (4.3-11.1)
[2020-08-05] MEDS ORDERED: *HR* Rocuronium Bromide 50 MG/5 ML VIAL ONE (07:47)
[2020-08-05] MEDS ORDERED: Ondansetron 4 MG/2 ML VIAL ONE (07:47)
[2020-08-05] MEDS ORDERED: *HR* Etomidate 20 MG/10 ML AMPUL IVP ONE (07:48)
[2020-08-05] MEDS ORDERED: Lidocaine 2% Syringe 100 MG/5 ML ONE (07:48)
[2020-08-05 07:49] LABS: Calcium 9.1 mg/dL (8.6-10.3); Magnesium 2.3 mg/dL (1.6-2.6); Potassium 5.1 mEq/L (3.5-5.1)
[2020-08-05] MEDS ORDERED: *HR* FentaNYL (PF) 250 MCG/5 ML VIAL ONE (07:49)
[2020-08-05] MEDS: Budesonide/Formoterol 80/4.5 1 PUFF INH IH SCH ×2 (07:52→22:29)
[2020-08-05] MEDS: Insulin LISPRO 300 UNITS/3 ML VIAL SUBQ SCH ×4 (07:59→21:20)
[2020-08-05] MEDS: DilTIAZem CD (24hr) 120 MG CAP.ER.24H PO SCH (08:01)
[2020-08-05] MEDS: Bumetanide 1 MG TABLET PO SCH (08:01)
[2020-08-05] MEDS: PARoxetine 20 MG TABLET PO SCH (08:01)
[2020-08-05] MEDS: Aspirin 81 MG TAB.CHEW PO SCH (08:11)
[2020-08-05] MEDS ORDERED: Vancomycin 1,000 MG VIAL ONE (08:19)
[2020-08-05] MEDS ORDERED: Lidocaine 1% 20 ML MDV ONE (08:37)
[2020-08-05] MEDS ORDERED: *HR* OxyCODONE Immed Rel 5 MG TABLET PO PRN (09:26)
[2020-08-05] MEDS ORDERED: *HR* FentaNYL (PF) 100 MCG/2 ML VIAL IVP PRN (09:26)
[2020-08-05] MEDS ORDERED: Albuterol 2.5 MG/3 ML NEBULIZER IH PRN (09:26)
[2020-08-05] MEDS ORDERED: Ondansetron 4 MG/2 ML VIAL IVP PRN (09:28)
[2020-08-05 12:17] LABS: Basophils % 0.3 %; Eosinophils # 0.1 K/mcL (0.0-0.6); Eosinophils % 0.6 %; Hematocrit 30.9 % (35.3-44.9); Hemoglobin 9.7 g/dL (11.5-15.4); Immature Granulocytes % 0.5 % (0-4); Lymphocytes # 0.4 K/mcL (0.6-4.6); Lymphocytes % 4.6 %; Mean Corpuscular HGB Conc 31.4 g/dL (31.6-35.5); Mean Corpuscular Hemoglobin 32.1 pg (28.0-33.3); Mean Corpuscular Volume 102.3 fL (83.0-100.0); Mean Platelet Volume 10.1 fL (9.4-12.4); Monocytes # 0.5 K/mcL (0.0-1.3); Monocytes % 5.5 %; Neutrophils # 8.3 K/mcL (1.6-8.9); Platelet Count 174 K/mcL (140-400); Red Blood Count 3.02 M/mcL (3.82-4.97); Red Cell Distribution Width 15.6 % (11.5-14.5); Segmented Neutrophils % 88.5 %; White Blood Count 9.4 K/mcL (4.3-11.1)
[2020-08-05 12:32] LABS: Calcium 8.6 mg/dL (8.6-10.3); Magnesium 2.3 mg/dL (1.6-2.6); Potassium 5.4 mEq/L (3.5-5.1)
[2020-08-05] MEDS: Pregabalin 75 MG CAPSULE PO SCH (16:53)
[2020-08-05] MEDS: traZODone 50 MG TABLET PO SCH (20:51)
[2020-08-05] MEDS: *HR* HYDROcodone/Acet 5/325 mg TABLET PO PRN (20:51)
[2020-08-05] MEDS: Insulin DETEMIR 100 UNIT/ML X5UNITS SUBQ SCH (21:19)
[2020-08-06 02:16] LABS: Basophils % 0.1 %; Hematocrit 32.1 % (35.3-44.9); Hemoglobin 10.1 g/dL (11.5-15.4); Immature Granulocytes % 0.6 % (0-4); Lymphocytes # 0.4 K/mcL (0.6-4.6); Lymphocytes % 3.1 %; Mean Corpuscular HGB Conc 31.5 g/dL (31.6-35.5); Mean Corpuscular Hemoglobin 31.6 pg (28.0-33.3); Mean Corpuscular Volume 100.3 fL (83.0-100.0); Mean Platelet Volume 10.4 fL (9.4-12.4); Monocytes # 1.1 K/mcL (0.0-1.3); Neutrophils # 9.6 K/mcL (1.6-8.9); Platelet Count 158 K/mcL (140-400); Red Cell Distribution Width 15.3 % (11.5-14.5); Segmented Neutrophils % 86.2 %; White Blood Count 11.2 K/mcL (4.3-11.1)
[2020-08-06 02:29] LABS: Calcium 9.1 mg/dL (8.6-10.3); Magnesium 2.4 mg/dL (1.6-2.6); Potassium 6.7 mEq/L (3.5-5.1)
[2020-08-06] MEDS: Budesonide/Formoterol 80/4.5 1 PUFF INH IH SCH ×2 (07:58→19:52)
[2020-08-06] MEDS ORDERED: *HR* Heparin 10,000 UNIT/10 ML VIAL IV PRN (08:20)
[2020-08-06] MEDS ORDERED: 0.9 % Sodium Chloride 250 ML IVC PRN (08:20)
[2020-08-06] MEDS: Insulin LISPRO 300 UNITS/3 ML VIAL SUBQ SCH ×4 (11:08→21:10)
[2020-08-06] MEDS: DilTIAZem CD (24hr) 120 MG CAP.ER.24H PO SCH (13:36)
[2020-08-06] MEDS: PARoxetine 20 MG TABLET PO SCH (13:36)
[2020-08-06] MEDS: Aspirin 81 MG TAB.CHEW PO SCH (13:36)
[2020-08-06] MEDS: Bumetanide 1 MG TABLET PO SCH (13:36)
[2020-08-06] MEDS: *HR* Heparin 5,000 UNIT/ML VIAL SQ SCH (18:21)
[2020-08-06] MEDS ORDERED: 0.9 % Sodium Chloride 250 ML ONE (18:38)
[2020-08-06 18:47] LABS: Hematocrit 32.8 % (35.3-44.9); Hemoglobin 10.2 g/dL (11.5-15.4)
[2020-08-06] MEDS: Pregabalin 75 MG CAPSULE PO SCH (18:50)
[2020-08-06] MEDS: Ondansetron 4 MG/2 ML VIAL IVP PRN (18:53)
[2020-08-06] MEDS: Insulin DETEMIR 100 UNIT/ML X5UNITS SUBQ SCH (19:58)
[2020-08-06] MEDS: traZODone 50 MG TABLET PO SCH (19:58)
[2020-08-07 02:31] LABS: Basophils % 0.2 %; Eosinophils # 0.1 K/mcL (0.0-0.6); Eosinophils % 0.5 %; Hematocrit 31.7 % (35.3-44.9); Hemoglobin 9.7 g/dL (11.5-15.4); Immature Granulocytes % 0.7 % (0-4); Lymphocytes # 0.6 K/mcL (0.6-4.6); Lymphocytes % 6.4 %; Mean Corpuscular HGB Conc 30.6 g/dL (31.6-35.5); Mean Corpuscular Volume 101.3 fL (83.0-100.0); Mean Platelet Volume 10.3 fL (9.4-12.4); Monocytes # 1.3 K/mcL (0.0-1.3); Monocytes % 13.6 %; Neutrophils # 7.8 K/mcL (1.6-8.9); Platelet Count 182 K/mcL (140-400); Red Blood Count 3.13 M/mcL (3.82-4.97); Red Cell Distribution Width 15.3 % (11.5-14.5); Segmented Neutrophils % 78.6 %; White Blood Count 9.9 K/mcL (4.3-11.1)
[2020-08-07 02:47] LABS: Calcium 8.7 mg/dL (8.6-10.3); Phosphorous 4.5 mg/dL (2.7-4.5); Potassium 3.8 mEq/L (3.5-5.1)
[2020-08-07] MEDS ORDERED: Pantoprazole 40 MG VIAL IVP SCH (06:00)
[2020-08-07] MEDS ORDERED: Bumetanide 1 MG TABLET PO SCH (07:19)
[2020-08-07] MEDS: PARoxetine 20 MG TABLET PO SCH (09:21)
[2020-08-07] MEDS: DilTIAZem CD (24hr) 120 MG CAP.ER.24H PO SCH (09:21)
[2020-08-07] MEDS: Insulin LISPRO 300 UNITS/3 ML VIAL SUBQ SCH ×4 (09:22→20:37)
[2020-08-07] MEDS: Budesonide/Formoterol 80/4.5 1 PUFF INH IH SCH ×2 (09:41→19:40)
[2020-08-07 12:52] LABS: Hematocrit 31.5 % (35.3-44.9); Hemoglobin 9.6 g/dL (11.5-15.4)
[2020-08-07] MEDS: Pregabalin 75 MG CAPSULE PO SCH (16:41)
[2020-08-07] MEDS: traZODone 50 MG TABLET PO SCH (20:35)
[2020-08-07] MEDS: *HR* HYDROcodone/Acet 5/325 mg TABLET PO PRN (20:35)
[2020-08-07] MEDS: Insulin DETEMIR 100 UNIT/ML X5UNITS SUBQ SCH (20:35)
[2020-08-08] MEDS ORDERED: *HR* Heparin 10,000 UNIT/10 ML VIAL IV PRN (07:23)
[2020-08-08] MEDS ORDERED: 0.9 % Sodium Chloride 250 ML IVC PRN (07:23)
[2020-08-08] MEDS ORDERED: 0.9 % Sodium Chloride 1,000 ML PRIME SCH (07:30)
[2020-08-08] MEDS: Budesonide/Formoterol 80/4.5 1 PUFF INH IH SCH ×2 (07:45→20:26)
[2020-08-08 07:59] LABS: Hematocrit 31.8 % (35.3-44.9); Hemoglobin 9.7 g/dL (11.5-15.4)
[2020-08-08 08:15] LABS: Magnesium 2.1 mg/dL (1.6-2.6); Phosphorous 5.1 mg/dL (2.7-4.5)
[2020-08-08 08:16] LABS: Calcium 8.7 mg/dL (8.6-10.3); Potassium 4.4 mEq/L (3.5-5.1)
[2020-08-08] MEDS: Insulin LISPRO 300 UNITS/3 ML VIAL SUBQ SCH ×4 (09:31→21:22)
[2020-08-08] MEDS: DilTIAZem CD (24hr) 120 MG CAP.ER.24H PO SCH (09:31)
[2020-08-08] MEDS: PARoxetine 20 MG TABLET PO SCH (09:37)
[2020-08-08] MEDS: *HR* Heparin 5,000 UNIT/ML VIAL SQ SCH (20:08)
[2020-08-08] MEDS: Pregabalin 75 MG CAPSULE PO SCH (20:12)
[2020-08-08] MEDS: traZODone 50 MG TABLET PO SCH (20:22)
[2020-08-08] MEDS: *HR* HYDROcodone/Acet 5/325 mg TABLET PO PRN (20:22)
[2020-08-08] MEDS: Insulin DETEMIR 100 UNIT/ML X5UNITS SUBQ SCH (21:21)
[2020-08-09] MEDS: *HR* Heparin 5,000 UNIT/ML VIAL SQ SCH ×2 (05:39→17:49)
[2020-08-09] MEDS: *HR* HYDROcodone/Acet 5/325 mg TABLET PO PRN (05:39)
[2020-08-09] MEDS: Budesonide/Formoterol 80/4.5 1 PUFF INH IH SCH ×2 (07:37→20:10)
[2020-08-09 07:58] LABS: Basophils % 0.6 %; Eosinophils # 0.2 K/mcL (0.0-0.6); Eosinophils % 2.5 %; Hematocrit 32.1 % (35.3-44.9); Immature Granulocytes % 0.4 % (0-4); Lymphocytes # 0.8 K/mcL (0.6-4.6); Lymphocytes % 11.3 %; Mean Corpuscular HGB Conc 31.2 g/dL (31.6-35.5); Mean Corpuscular Hemoglobin 31.3 pg (28.0-33.3); Mean Corpuscular Volume 100.6 fL (83.0-100.0); Mean Platelet Volume 9.8 fL (9.4-12.4); Monocytes # 1.1 K/mcL (0.0-1.3); Monocytes % 16.4 %; Neutrophils # 4.6 K/mcL (1.6-8.9); Platelet Count 195 K/mcL (140-400); Red Blood Count 3.19 M/mcL (3.82-4.97); Red Cell Distribution Width 14.8 % (11.5-14.5); Segmented Neutrophils % 68.8 %; White Blood Count 6.7 K/mcL (4.3-11.1)
[2020-08-09 08:14] LABS: Magnesium 1.9 mg/dL (1.6-2.6)
[2020-08-09 08:18] LABS: Calcium 8.7 mg/dL (8.6-10.3); Potassium 3.9 mEq/L (3.5-5.1)
[2020-08-09] MEDS: Insulin LISPRO 300 UNITS/3 ML VIAL SUBQ SCH ×4 (08:20→20:14)
[2020-08-09] MEDS: PARoxetine 20 MG TABLET PO SCH (09:43)
[2020-08-09] MEDS: Aspirin Enteric Coated 81 MG Tablet PO SCH (09:43)
[2020-08-09] MEDS: DilTIAZem CD (24hr) 120 MG CAP.ER.24H PO SCH (09:44)
[2020-08-09] MEDS ORDERED: 0.9 % Sodium Chloride 250 ML IVC ONE (12:31)
[2020-08-09] MEDS: Pregabalin 75 MG CAPSULE PO SCH (17:49)
[2020-08-09] MEDS: Insulin DETEMIR 100 UNIT/ML X5UNITS SUBQ SCH (20:13)
[2020-08-09] MEDS: traZODone 50 MG TABLET PO SCH (20:13)
[2020-08-10] MEDS: *HR* Heparin 5,000 UNIT/ML VIAL SQ SCH ×2 (05:09→17:03)
[2020-08-10] MEDS ORDERED: 0.9 % Sodium Chloride 250 ML IVC PRN (07:03)
[2020-08-10] MEDS ORDERED: *HR* Heparin 10,000 UNIT/10 ML VIAL IV PRN (07:03)
[2020-08-10] MEDS ORDERED: 0.9 % Sodium Chloride 1,000 ML PRIME SCH (07:15)
[2020-08-10] MEDS: Budesonide/Formoterol 80/4.5 1 PUFF INH IH SCH ×2 (07:38→22:49)
[2020-08-10] MEDS: Insulin LISPRO 300 UNITS/3 ML VIAL SUBQ SCH ×4 (08:06→20:39)
[2020-08-10 13:38] LABS: Calcium 8.6 mg/dL (8.6-10.3); Potassium 4.2 mEq/L (3.5-5.1)
[2020-08-10] MEDS: DilTIAZem CD (24hr) 120 MG CAP.ER.24H PO SCH (14:15)
[2020-08-10] MEDS: Aspirin Enteric Coated 81 MG Tablet PO SCH (14:22)
[2020-08-10] MEDS: PARoxetine 20 MG TABLET PO SCH (14:22)
[2020-08-10] MEDS: Micafungin 100 MG in 0.9 % Sodium Chloride Mini Bag 100 ML IVPB SCH (14:23)
[2020-08-10] MEDS: Pregabalin 75 MG CAPSULE PO SCH (17:04)
[2020-08-10] MEDS: Ondansetron 4 MG/2 ML VIAL IVP PRN ×2 (17:49→20:23)
[2020-08-10] MEDS: traZODone 50 MG TABLET PO SCH (20:35)
[2020-08-10] MEDS: Insulin DETEMIR 100 UNIT/ML X5UNITS SUBQ SCH (20:45)
[2020-08-11 02:07] LABS: Basophils % 0.5 %; Eosinophils # 0.2 K/mcL (0.0-0.6); Eosinophils % 3.1 %; Hematocrit 31.1 % (35.3-44.9); Hemoglobin 9.7 g/dL (11.5-15.4); Immature Granulocytes % 0.9 % (0-4); Lymphocytes # 1.1 K/mcL (0.6-4.6); Lymphocytes % 14.4 %; Mean Corpuscular HGB Conc 31.2 g/dL (31.6-35.5); Mean Corpuscular Hemoglobin 31.1 pg (28.0-33.3); Mean Corpuscular Volume 99.7 fL (83.0-100.0); Mean Platelet Volume 10.5 fL (9.4-12.4); Monocytes % 13.6 %; Platelet Count 187 K/mcL (140-400); Red Blood Count 3.12 M/mcL (3.82-4.97); Red Cell Distribution Width 14.6 % (11.5-14.5); Segmented Neutrophils % 67.5 %; White Blood Count 7.5 K/mcL (4.3-11.1)
[2020-08-11 02:19] LABS: Calcium 8.2 mg/dL (8.6-10.3); Potassium 4.5 mEq/L (3.5-5.1)
[2020-08-11] MEDS: *HR* Heparin 5,000 UNIT/ML VIAL SQ SCH ×2 (05:21→18:04)
[2020-08-11] MEDS: Budesonide/Formoterol 80/4.5 1 PUFF INH IH SCH ×2 (07:30→21:27)
[2020-08-11] MEDS: Insulin LISPRO 300 UNITS/3 ML VIAL SUBQ SCH ×4 (08:16→20:44)
[2020-08-11] MEDS: Aspirin Enteric Coated 81 MG Tablet PO SCH (09:44)
[2020-08-11] MEDS: PARoxetine 20 MG TABLET PO SCH (09:44)
[2020-08-11] MEDS: DilTIAZem CD (24hr) 120 MG CAP.ER.24H PO SCH (09:44)
[2020-08-11] MEDS: Micafungin 100 MG in 0.9 % Sodium Chloride Mini Bag 100 ML IVPB SCH (09:44)
[2020-08-11] MEDS: *HR* HYDROcodone/Acet 5/325 mg TABLET PO PRN (10:38)
[2020-08-11] MEDS: Ondansetron 4 MG/2 ML VIAL IVP PRN (12:20)
[2020-08-11] MEDS ORDERED: Ipratropium/Albuterol Neb 3 ML IH PRN (14:20)
[2020-08-11] MEDS: Ipratropium/Albuterol Neb 3 ML IH SCH ×2 (15:59→21:27)
[2020-08-11] MEDS: Acetaminophen 325 MG TABLET PO PRN (16:04)
[2020-08-11] MEDS: Pregabalin 75 MG CAPSULE PO SCH (17:42)
[2020-08-11] MEDS ORDERED: Pantoprazole 40 MG VIAL IVP ONE ×2 (17:50→23:41)
[2020-08-11] MEDS ORDERED: *HR* Promethazine 25 MG/ML VIAL IM ONE (17:51)
[2020-08-11 18:02] LABS: Hematocrit 23.3 % (35.3-44.9)
[2020-08-11] MEDS: Pantoprazole 40 MG VIAL IVP SCH ×2 (18:04→18:26)
[2020-08-11 18:13] LABS: Hemoglobin 7.4 g/dL (11.5-15.4)
[2020-08-11] MEDS ORDERED: Amiodarone Premix 360 MG/200 ML BAG IVC ONE (18:53)
[2020-08-11] MEDS ORDERED: Amiodarone Premix 150 MG/100 ML BAG IVPB ONE (18:53)
[2020-08-11] MEDS ORDERED: 0.9 % Sodium Chloride 250 ML ONE (19:18)
[2020-08-11] MEDS: traZODone 50 MG TABLET PO SCH (20:44)
[2020-08-11 22:41] LABS: Hematocrit 22.1 % (35.3-44.9); Hemoglobin 7.1 g/dL (11.5-15.4)
[2020-08-11 22:54] LABS: INR 1.9
[2020-08-11] MEDS ORDERED: 0.9 % Sodium Chloride 250 ML IVC SCH (23:00)
[2020-08-11] MEDS: Pantoprazole 40 MG in 0.9 % Sodium Chloride Mini Bag 100 ML IVC SCH (23:06)
[2020-08-12] MEDS: Pantoprazole 40 MG in 0.9 % Sodium Chloride Mini Bag 100 ML IVC SCH ×6 (01:57→20:56)
[2020-08-12 03:02] LABS: Hematocrit 24.8 % (35.3-44.9)
[2020-08-12] MEDS: Ipratropium/Albuterol Neb 3 ML IH SCH ×4 (03:44→22:36)
[2020-08-12] MEDS: Amiodarone Premix 360 MG/200 ML BAG IVC SCH ×2 (03:44→15:14)
[2020-08-12 06:16] LABS: Basophils % 0.4 %; Eosinophils # 0.1 K/mcL (0.0-0.6); Eosinophils % 0.9 %; Hematocrit 23.7 % (35.3-44.9); Immature Granulocytes % 1.4 % (0-4); Lymphocytes # 1.2 K/mcL (0.6-4.6); Lymphocytes % 10.9 %; Mean Corpuscular HGB Conc 33.8 g/dL (31.6-35.5); Mean Corpuscular Hemoglobin 31.3 pg (28.0-33.3); Mean Corpuscular Volume 92.6 fL (83.0-100.0); Mean Platelet Volume 10.5 fL (9.4-12.4); Monocytes # 1.4 K/mcL (0.0-1.3); Monocytes % 13.1 %; Neutrophils # 7.8 K/mcL (1.6-8.9); Platelet Count 190 K/mcL (140-400); Red Blood Count 2.56 M/mcL (3.82-4.97); Red Cell Distribution Width 16.5 % (11.5-14.5); Segmented Neutrophils % 73.3 %; White Blood Count 10.6 K/mcL (4.3-11.1)
[2020-08-12 06:42] LABS: % Iron Saturation 86 % (15-50); BUN/Creatinine Ratio 24 (6-26); Blood Urea Nitrogen 95 mg/dL (8-23); Carbon Dioxide 26 mEq/L (23-29); Chloride 91 mEq/L (98-107); Glucose 275 mg/dL (70-105); Iron 187 mcg/dL (50-170); Magnesium 1.7 mg/dL (1.6-2.6); Osmolality,Calculated 311 (280-300); Phosphorous 6.3 mg/dL (2.7-4.5); Potassium 5.4 mEq/L (3.5-5.1); Sodium 131 mEq/L (136-145); Transferrin 155 mg/dL (203-362); eGFR For African Americans 13 (> 60); eGFR For Non-African Americans 11 (> 60)
[2020-08-12 07:02] LABS: Vitamin B12 1253 pg/mL (250-1100)
[2020-08-12 07:06] LABS: Ferritin > 1500 ng/mL (10-120); Folate > 22.3 ng/mL (3.0-16.0)
[2020-08-12] MEDS ORDERED: Lidocaine -MPF 2% 2 ML VIAL ONE (07:19)
[2020-08-12] MEDS ORDERED: *HR* Propofol 200 MG/20 ML VIAL IVP ONE ×2 (07:19→09:23)
[2020-08-12 07:42] LABS: Estimated Average Glucose 160 mg/dl; Hemoglobin A1C 7.2 %
[2020-08-12] MEDS: Micafungin 100 MG in 0.9 % Sodium Chloride Mini Bag 100 ML IVPB SCH (07:50)
[2020-08-12] MEDS: *HR* HYDROcodone/Acet 5/325 mg TABLET PO PRN ×2 (07:51→15:15)
[2020-08-12] MEDS: PARoxetine 20 MG TABLET PO SCH (07:51)
[2020-08-12] MEDS: Insulin LISPRO 300 UNITS/3 ML VIAL SUBQ SCH ×4 (07:53→20:55)
[2020-08-12] MEDS ORDERED: DilTIAZem CD (24hr) 180 MG CAP.ER.24H PO SCH (09:00)
[2020-08-12] MEDS ORDERED: *HR* Succinylcholine 200 MG/10 ML VIAL IVP ONE (09:39)
[2020-08-12] MEDS ORDERED: Ondansetron 4 MG/2 ML VIAL ONE (10:03)
[2020-08-12] MEDS: Budesonide/Formoterol 80/4.5 1 PUFF INH IH SCH ×2 (11:13→22:36)
[2020-08-12 14:29] LABS: Hematocrit 26.1 % (35.3-44.9); Hemoglobin 8.6 g/dL (11.5-15.4)
[2020-08-12] MEDS: Calcium Acetate 667 MG CAPSULE PO SCH ×2 (15:08→17:11)
[2020-08-12] MEDS: Pregabalin 75 MG CAPSULE PO SCH (17:15)
[2020-08-12] MEDS: traZODone 50 MG TABLET PO SCH (20:56)
[2020-08-13] MEDS: Pantoprazole 40 MG in 0.9 % Sodium Chloride Mini Bag 100 ML IVC SCH ×5 (02:18→22:58)
[2020-08-13] MEDS: Ipratropium/Albuterol Neb 3 ML IH SCH ×4 (04:04→22:22)
[2020-08-13 04:08] LABS: Basophils % 0.1 %; Eosinophils % 0.2 %; Hematocrit 26.4 % (35.3-44.9); Hemoglobin 8.8 g/dL (11.5-15.4); Immature Granulocytes % 1.9 % (0-4); Lymphocytes # 0.6 K/mcL (0.6-4.6); Lymphocytes % 6.8 %; Mean Corpuscular HGB Conc 33.3 g/dL (31.6-35.5); Mean Corpuscular Hemoglobin 30.4 pg (28.0-33.3); Mean Corpuscular Volume 91.3 fL (83.0-100.0); Mean Platelet Volume 10.3 fL (9.4-12.4); Monocytes # 0.5 K/mcL (0.0-1.3); Monocytes % 5.9 %; Neutrophils # 6.9 K/mcL (1.6-8.9); Platelet Count 173 K/mcL (140-400); Red Blood Count 2.89 M/mcL (3.82-4.97); Red Cell Distribution Width 17.1 % (11.5-14.5); Segmented Neutrophils % 85.1 %; White Blood Count 8.1 K/mcL (4.3-11.1)
[2020-08-13 04:29] LABS: Magnesium 1.9 mg/dL (1.6-2.6); Phosphorous 7.3 mg/dL (2.7-4.5); Potassium 5.3 mEq/L (3.5-5.1)
[2020-08-13] MEDS: DilTIAZem CD (24hr) 120 MG CAP.ER.24H PO SCH (07:44)
[2020-08-13] MEDS: *HR* Amiodarone 200 MG TABLET PO SCH (07:44)
[2020-08-13] MEDS: PARoxetine 20 MG TABLET PO SCH (07:44)
[2020-08-13] MEDS: Calcium Acetate 667 MG CAPSULE PO SCH ×3 (07:44→16:52)
[2020-08-13] MEDS: Micafungin 100 MG in 0.9 % Sodium Chloride Mini Bag 100 ML IVPB SCH (07:45)
[2020-08-13] MEDS: Insulin LISPRO 300 UNITS/3 ML VIAL SUBQ SCH ×3 (07:48→16:52)
[2020-08-13] MEDS ORDERED: 0.9 % Sodium Chloride 250 ML IVC PRN (08:03)
[2020-08-13] MEDS ORDERED: *HR* Heparin 10,000 UNIT/10 ML VIAL IV PRN (08:03)
[2020-08-13] MEDS ORDERED: *HR* Amiodarone 200 MG TABLET PO SCH (09:00)
[2020-08-13] MEDS ORDERED: Albumin 25% 25gram/100mL 25 GM/100 ML IV.SOLN ONE (10:03)
[2020-08-13] MEDS ORDERED: Albumin 25% 25gram/100mL 25 GM/100 ML IV.SOLN IVPB ONE (10:25)
[2020-08-13] MEDS ORDERED: Insulin DETEMIR 100 UNIT/ML X5UNITS SUBQ SCH (11:30)
[2020-08-13] MEDS: Budesonide/Formoterol 80/4.5 1 PUFF INH IH SCH ×2 (11:46→22:22)
[2020-08-13] MEDS ORDERED: Saline Nasal Spray 44 ML BOTTLE NS PRN (12:07)
[2020-08-13] MEDS ORDERED: Artificial Tears SOLN 15 ML BOTTLE BOTH EYES PRN (12:07)
[2020-08-13] MEDS ORDERED: Melatonin 3 MG TABLET PO PRN (12:07)
[2020-08-13] MEDS: Pregabalin 75 MG CAPSULE PO SCH (17:04)
[2020-08-13] MEDS: *HR* HYDROcodone/Acet 5/325 mg TABLET PO PRN (17:36)
[2020-08-13] MEDS ORDERED: 0.9 % Sodium Chloride 250 ML IVC ONE (21:13)
[2020-08-13] MEDS: Chlorhexidine Rinse 15 ML MOUTHWASH MM SCH (22:57)
[2020-08-13] MEDS: Lactobacillus 1 EACH CAP.SPRINK PO SCH (22:57)
[2020-08-14] MEDS ORDERED: Albumin 25% 25gram/100mL 25 GM/100 ML IV.SOLN IVPB ONE ×2 (01:17→22:42)
[2020-08-14] MEDS: traZODone 50 MG TABLET PO SCH ×2 (01:19→20:10)
[2020-08-14 01:55] LABS: Calcium 8.3 mg/dL (8.6-10.3); Magnesium 1.7 mg/dL (1.6-2.6); Phosphorous 3.6 mg/dL (2.7-4.5); Potassium 4.2 mEq/L (3.5-5.1)
[2020-08-14] MEDS: Pantoprazole 40 MG in 0.9 % Sodium Chloride Mini Bag 100 ML IVC SCH ×4 (03:48→20:09)
[2020-08-14 04:02] LABS: Basophils % 0.1 %; Eosinophils # 0.2 K/mcL (0.0-0.6); Eosinophils % 2.3 %; Hematocrit 24.5 % (35.3-44.9); Hemoglobin 7.8 g/dL (11.5-15.4); Immature Granulocytes % 0.9 % (0-4); Lymphocytes % 11.9 %; Mean Corpuscular HGB Conc 31.8 g/dL (31.6-35.5); Mean Corpuscular Hemoglobin 30.2 pg (28.0-33.3); Mean Platelet Volume 10.4 fL (9.4-12.4); Monocytes % 12.4 %; Neutrophils # 5.9 K/mcL (1.6-8.9); Platelet Count 174 K/mcL (140-400); Red Blood Count 2.58 M/mcL (3.82-4.97); Red Cell Distribution Width 17.1 % (11.5-14.5); Segmented Neutrophils % 72.4 %; White Blood Count 8.1 K/mcL (4.3-11.1)
[2020-08-14] MEDS: Ipratropium/Albuterol Neb 3 ML IH SCH ×4 (04:05→22:26)
[2020-08-14] MEDS: Insulin LISPRO 300 UNITS/3 ML VIAL SUBQ SCH ×3 (08:22→16:39)
[2020-08-14] MEDS: Lactobacillus 1 EACH CAP.SPRINK PO SCH ×2 (08:23→20:10)
[2020-08-14] MEDS: Calcium Acetate 667 MG CAPSULE PO SCH ×3 (08:23→17:15)
[2020-08-14] MEDS: DilTIAZem CD (24hr) 120 MG CAP.ER.24H PO SCH (08:23)
[2020-08-14] MEDS: Multivit/Ca/Min/Fe/FA 1 TAB TABLET PO SCH (08:24)
[2020-08-14] MEDS: *HR* Amiodarone 200 MG TABLET PO SCH (08:24)
[2020-08-14] MEDS: PARoxetine 20 MG TABLET PO SCH (08:24)
[2020-08-14] MEDS: Micafungin 100 MG in 0.9 % Sodium Chloride Mini Bag 100 ML IVPB SCH (08:24)
[2020-08-14] MEDS: Chlorhexidine Rinse 15 ML MOUTHWASH MM SCH ×2 (08:24→20:10)
[2020-08-14] MEDS ORDERED: Insulin DETEMIR 100 UNIT/ML X5UNITS SUBQ SCH (09:00)
[2020-08-14] MEDS: Budesonide/Formoterol 80/4.5 1 PUFF INH IH SCH ×2 (10:31→22:26)
[2020-08-14 11:16] LABS: Hematocrit 25.4 % (35.3-44.9); Hemoglobin 8.2 g/dL (11.5-15.4)
[2020-08-14] MEDS: *HR* HYDROcodone/Acet 5/325 mg TABLET PO PRN (11:36)
[2020-08-14] MEDS: Pregabalin 75 MG CAPSULE PO SCH (17:15)
[2020-08-14] MEDS ORDERED: Insulin LISPRO 300 UNITS/3 ML VIAL SUBQ SCH (21:00)
[2020-08-15 01:51] LABS: Hematocrit 24.8 % (35.3-44.9); Hemoglobin 7.9 g/dL (11.5-15.4); Mean Corpuscular HGB Conc 31.9 g/dL (31.6-35.5); Mean Corpuscular Hemoglobin 30.9 pg (28.0-33.3); Mean Corpuscular Volume 96.9 fL (83.0-100.0); Mean Platelet Volume 10.4 fL (9.4-12.4); Platelet Count 155 K/mcL (140-400); Red Blood Count 2.56 M/mcL (3.82-4.97); Red Cell Distribution Width 17.2 % (11.5-14.5); White Blood Count 10.3 K/mcL (4.3-11.1)
[2020-08-15 02:12] LABS: Magnesium 1.8 mg/dL (1.6-2.6); Phosphorous 3.5 mg/dL (2.7-4.5); Potassium 4.1 mEq/L (3.5-5.1)
[2020-08-15] MEDS: Ipratropium/Albuterol Neb 3 ML IH SCH ×3 (04:11→15:17)
[2020-08-15] MEDS: Acetaminophen 325 MG TABLET PO PRN (05:50)
[2020-08-15] MEDS ORDERED: *HR* Heparin 10,000 UNIT/10 ML VIAL IV PRN (07:25)
[2020-08-15] MEDS ORDERED: 0.9 % Sodium Chloride 250 ML IVC PRN (07:25)
[2020-08-15] MEDS ORDERED: 0.9 % Sodium Chloride 1,000 ML PRIME SCH (07:30)
[2020-08-15] MEDS: PARoxetine 20 MG TABLET PO SCH (08:22)
[2020-08-15] MEDS: Lactobacillus 1 EACH CAP.SPRINK PO SCH (08:22)
[2020-08-15] MEDS: Calcium Acetate 667 MG CAPSULE PO SCH ×2 (08:22→11:53)
[2020-08-15] MEDS: Insulin LISPRO 300 UNITS/3 ML VIAL SUBQ SCH ×2 (08:22→11:53)
[2020-08-15] MEDS: Multivit/Ca/Min/Fe/FA 1 TAB TABLET PO SCH (08:22)
[2020-08-15] MEDS: DilTIAZem CD (24hr) 120 MG CAP.ER.24H PO SCH (08:25)
[2020-08-15] MEDS: Chlorhexidine Rinse 15 ML MOUTHWASH MM SCH (08:25)
[2020-08-15] MEDS: *HR* Amiodarone 200 MG TABLET PO SCH (08:26)
[2020-08-15] MEDS ORDERED: Fluconazole 100 MG TABLET PO SCH (09:00)
[2020-08-15 10:32] LABS: Hematocrit 25.4 % (35.3-44.9); Hemoglobin 7.8 g/dL (11.5-15.4)
[2020-08-15] MEDS: Budesonide/Formoterol 80/4.5 1 PUFF INH IH SCH (10:37)
[2020-08-15 12:45] VITALS: BP 95/46
[2020-08-15 13:43] LABS: Hematocrit 26.3 % (35.3-44.9); Hemoglobin 8.1 g/dL (11.5-15.4)
[2020-08-17] MEDS ORDERED: Fluconazole 100 MG TABLET PO SCH (16:00)
== END 2020-08-15 17:15 | disposition home health service (06) | DRG 270 ==
LOC: EMEROOARM 12:04 → 2NENU 12:04 → SUATTDRO 15:03 → 2NENU 16:13 → SUATTDRO 08-06 17:51 → 2NNU 08-11 20:34 → 2NENU 08-14 17:01
PROVIDERS: ADMIT Internal Medicine; ATTEND Internal Medicine